=== PATIENT | female | born 1990 | race Caucasian/White ===

== ENCOUNTER 2022-03-04 00:16 | Emergency (ER) | payer OTHER, SELFPAY ==
[2022-03-04] VITALS (12 sets, daily range): BP systolic 116–150; BP diastolic 64–81; PULSE 66–86; RESP 16–20; TEMP 36.3; O2SAT 93–100; BMI 39.1
--- NOTE | 2022-03-04 02:14 | W.ED.ABDPA2 ---
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 She presents with multiple episodes of vomiting and diarrhea last night and this morning. She denies fever. She has a history of pancreatitis, when she was prior. She is currently 14 weeks . She has since had a cholecystectomy. She is also had a . No vaginal bleeding or discharge. Pain is in her epigastrium. MD elicited complaint: abdominal pain Pertinent past history: other Onset (ago): hour(s) Pain Consistency: constant Location: Epigastric Severity: moderate Quality: cramping and stabbing Radiation: back Migration to: no migration Exacerbating factors: movement Relieving factors: nothing Associated Symptoms: Reports bloating, change in bowel habits, diarrhea, nausea and vomiting; Denies dysuria and fever(s) Review of Systems Const: Reports: change in appetite; Denies: fever(s) or body aches Card: Denies: chest pain Resp: Denies: dyspnea, productive cough or non-productive cough GI: Reports: nausea, vomiting, diarrhea, bloating and change in bowel habits : Denies: dysuria, vaginal bleeding or vaginal discharge PFSH ED PFSH: Medical History Pancreatitis Physical Exam Const: GENERAL APPEARANCE: cooperative and ill appearing (mildly) HENMT: COMMON NORMALS: normocephalic HEAD & SCALP: normocephalic FACE & SINUS: normal facial exam and face symmetric Eye: COMMON NORMALS: Equal, round and reactive pupils present and EOMs intact bilaterally PUPIL: Yes Equal, round and reactive pupils present Chest: COMMONS NORMALS: normal inspection of the chest Resp: COMMON NORMALS: normal respiratory effort, No use of accessory muscles and clear to auscultation bilaterally AUSCULTATION: clear to auscultation bilaterally Cardio: COMMON NORMALS: regular rate and regular rhythm RATE: regular rate RHYTHM: regular rhythm GI: COMMON NORMALS: Soft to palpation INSPECTION: Yes abdominal distension (mildly) PALPATION: Yes Soft to palpation and Yes Tenderness to palpation present (GI) (epigastric) Neuro: ETHEL COMA SCALE: document GCS findings Range coma scale eye opening: Spontaneous Ethel coma scale verbal response: Orientated Ethel coma scale motor response: Obey commands Ethel coma scale total score: 15 Psych: COMMON NORMALS: mental status grossly normal and cooperative Skin: COMMON NORMALS: no rashes or lesions noted GENERAL SKIN EXAM: no rashes or lesions noted Course Vital Signs: Vital signs: Vital Signs Temperature 97.4 F L 03/04/22 00:25 Pulse Rate 86 03/04/22 05:52 Respiratory Rate 18 03/04/22 05:52 Blood Pressure 141/78 03/04/22 05:52 Pulse Oximetry 97 03/04/22 05:52 MDM - Abdominal Pain Medical Decision Making Patient feeling improved after antiemetics, pain medication, and 2 L of fluid here. Her potassium was 3.2, bicarbonate 16. CBC is normal. CRP is normal. Her serum quant is appropriate. Bedside ultrasound reveals intrauterine with positive movement, heart rate of 150, and a biparietal diameter of 14 weeks 5 days consistent with her dates. She is tender in the epigastrium. Her lipase is normal. Her liver enzymes are normal. She will be allowed discharge. She knows for what to return. Lab Data : 03/04/22 02:15 03/04/22 02:15 Labs/Radiology: Laboratory Results WBC 9.6 10^3/uL (4.0-10.0) 03/04/22 02:15 RBC 4.28 10^6/uL (4.1-5.3) 03/04/22 02:15 Hgb 13.4 g/dL (11.5-15.3) 03/04/22 02:15 Hct 39.7 % (37.0-47.0) 03/04/22 02:15 MCV 92.8 fl (81-99) 03/04/22 02:15 MCH 31.3 pg (28.0-34.0) 03/04/22 02:15 MCHC 33.8 g/dL (30.0-36.0) 03/04/22 02:15 RDW 12.7 % (12.1-15.1) 03/04/22 02:15 Plt Count 210 10^3/cmm (130-400) 03/04/22 02:15 MPV 10.9 fL (7.4-10.4) H 03/04/22 02:15 Neut % (Auto) 78.9 % 03/04/22 02:15 Lymph % (Auto) 15.0 % 03/04/22 02:15 [place] % (Auto) 5.2 % 03/04/22 02:15 Eos % (Auto) 0.5 % 03/04/22 02:15 Baso % (Auto) 0.2 % 03/04/22 02:15 Neut # (Auto) 7.60 10^3/uL (1.8-7.7) 03/04/22 02:15 Lymph # (Auto) 1.4 10^3/uL (0.8-4.8) 03/04/22 02:15 [place] # (Auto) 0.5 10^3/uL (0.2-0.9) 03/04/22 02:15 Eos # (Auto) 0.1 10^3/uL (0.0-0.8) 03/04/22 02:15 Baso # (Auto) 0.0 10^3/uL (0.0-0.1) 03/04/22 02:15 Nucleated RBC % (auto) 0 % 03/04/22 02:15 Nucleated RBCs # 0.0 /100WBC 03/04/22 02:15 Sodium 133 mmol/L (136-145) L 03/04/22 02:15 Potassium 3.2 mmol/L (3.5-5.1) L 03/04/22 02:15 Chloride 103 mmol/L (98-107) 03/04/22 02:15 Carbon Dioxide 16 mmol/L (22-29) L 03/04/22 02:15 Anion Gap 17.2 (5-19) 03/04/22 02:15 BUN 9 mg/dL (6-20) 03/04/22 02:15 Creatinine 0.5 mg/dL (0.5-0.9) 03/04/22 02:15 GFR Calculation 143.0 mL/min (90-130) H 03/04/22 02:15 Glucose 94 mg/dL (65-115) 03/04/22 02:15 Calculated Osmolality 274 mOsm/kg (285-295) L 03/04/22 02:15 Calcium 9.1 mg/dL (8.5-10.5) 03/04/22 02:15 Total Bilirubin 0.2 mg/dL (0.15-1.2) 03/04/22 02:15 AST 26 U/L (0-32) 03/04/22 02:15 ALT 38 U/L (0-33) H 03/04/22 02:15 Alkaline Phosphatase 49 IU/L (35-105) 03/04/22 02:15 C-Reactive Protein 4.6 mg/L (0.0-4.9) 03/04/22 02:15 Total Protein 6.9 g/dL (6.6-8.7) 03/04/22 02:15 Albumin 3.9 g/dL (3.5-5.2) 03/04/22 02:15 Globulin 3.0 g/dL (1.3-4.6) 03/04/22 02:15 Lipase 32 U/L (13-60) 03/04/22 02:15 Ser , Semi-Qnt 63961.00 mIU/mL 03/04/22 02:15 Urine Color Yellow (Yellow) 03/04/22 03:57 Urine Appearance Clear (CLEAR) 03/04/22 03:57 Urine pH 5 (5-7) 03/04/22 03:57 Ur Specific [place] 1.030 (1.005-1.030) 03/04/22 03:57 Urine Protein Neg (Negative) 03/04/22 03:57 Urine Glucose (UA) Norm (Normal) 03/04/22 03:57 Urine Ketones 1+ (Negative) H 03/04/22 03:57 Urine Blood Neg (Negative) 03/04/22 03:57 Urine Nitrate Negative (Negative) 03/04/22 03:57 Urine Bilirubin 1+ (Negative) H 03/04/22 03:57 Urine Urobilinogen Norm mg/dL (Negative) 03/04/22 03:57 Ur Leukocyte Esterase Negative (Negative) 03/04/22 03:57 Discharge Plan Discharge Patient Disposition: Home Clinical Impression: Acute epigastric pain, Gastroenteritis, Hypokalemia Condition: Stable Prescriptions: New ondansetron 4 mg film 4 mg PO DAILY PRN (Reason: nausea and vomiting) Qty: 10 0RF Pepcid 20 mg tablet 20 mg PO BID Qty: 30 0RF Discharge Orders: Discharge ED (Routine); Ordered 03/04/22 Ordered By: Mateo Bobo Patient Instructions: Gastroenteritis (ED), Abdominal Pain (ED) Activity Restrictions/Additional Instructions: Return for significant fever, vomiting liquids or medications despite treatment, worsening pain, blood in the stool, any other concerning symptoms. Return also for vaginal bleeding or discharge. Take nausea medication every 6 hours while awake for the first 24 hours, then as needed. Follow-up with your doctor. Coding Level of Care Code ED Aircraft Assembler for Chg Fwd Exam Comprehensive
[2022-03-04] MEDS: sodium chloride 0.9% 1,000 ML 999 ML IV ×2 (02:27→03:47)
[2022-03-04] MEDS: ondansetron 2 mg/ML SDV 2 mL 4 MG IVP (02:29)
[2022-03-04] MEDS: morphine 4 mg/mL SDV 1 mL IVP (02:32)
[2022-03-04 02:42] LABS: Basophils % 0.2 %; Eosinophils # 0.1 10^3/uL (0.0-0.8); Eosinophils % 0.5 %; Hematocrit 39.7 % (37.0-47.0); Hemoglobin 13.4 g/dL (11.5-15.3); Lymphocytes # 1.4 10^3/uL (0.8-4.8); Mean Corpuscular HGB Conc 33.8 g/dL (30.0-36.0); Mean Corpuscular Hemoglobin 31.3 pg (28.0-34.0); Mean Corpuscular Volume 92.8 fl (81-99); Mean Platelet Volume 10.9 fL (7.4-10.4); Monocytes # 0.5 10^3/uL (0.2-0.9); Monocytes % 5.2 %; Neutrophils % 78.9 %; Nucleated Red Blood Cells % 0 %; Platelet Count 210 10^3/cmm (130-400); Red Blood Count 4.28 10^6/uL (4.1-5.3); Red Cell Distribution Width 12.7 % (12.1-15.1); White Blood Count 9.6 10^3/uL (4.0-10.0)
[2022-03-04 03:21] LABS: Alanine Aminotransferase 38 U/L (0-33); Albumin Level 3.9 g/dL (3.5-5.2); Alkaline Phosphatase 49 IU/L (35-105); Anion Gap 17.2 (5-19); Aspartate Amino Transferase 26 U/L (0-32); Blood Urea Nitrogen 9 mg/dL (6-20); C Reactive Protein 4.6 mg/L (0.0-4.9); Calcium 9.1 mg/dL (8.5-10.5); Carbon Dioxide 16 mmol/L (22-29); Chloride 103 mmol/L (98-107); Glucose 94 mg/dL (65-115); Lipase 32 U/L (13-60); Osmolality Calculated 274 mOsm/kg (285-295); Potassium 3.2 mmol/L (3.5-5.1); Sodium 133 mmol/L (136-145); Total Bilirubin 0.2 mg/dL (0.15-1.2); Total Protein 6.9 g/dL (6.6-8.7)
[2022-03-04] MEDS: potassium chloride ER 20 mEq Tablet 40 MEQ PO (03:55)
[2022-03-04 04:09] LABS: Add Urine Microscopic? NO; Charge for UA Resulting for Rev
[2022-03-04 04:14] LABS: Bilirubin Urine 1+ (Negative); Blood Urine Neg (Negative); Glucose Urine UA Norm (Normal); Ketones Urine 1+ (Negative); Leukocyte Esterase Urine Negative (Negative); Nitrate Urine Negative (Negative); Protein Urine Neg (Negative); Urine Appearance Clear (CLEAR); Urine Color Yellow (Yellow); Urobilinogen Urine Norm (Negative); pH Urine 5 (5-7)
== END 2022-03-04 05:45 | disposition home or self-care (01) ==
PROVIDERS: Nurse Practitioner Family; Emergency Provider Emergency Medicine
DX: O26.892 Other specified pregnancy related conditions, second trimester (principal); K52.9 Noninfective gastroenteritis and colitis, unspecified; E87.6 Hypokalemia
CPT/HCPCS: 80053; 81003; 83690; 84702; 85025; 86140; 96361; 96374; 96375; 99284; J2270; J2405; J7030

== ENCOUNTER 2024-01-11 06:20 | Emergency (ER) | payer OTHER, SELFPAY ==
--- NOTE | 2024-01-11 06:26 | ECG_ITS ---
[facility] Test Date: 2024-01-11 Pat Name: Harper Elise Department: Room: Gender: Female Software Engineering Manager: : 1990 Requested By: Kaleb Keller Order Number: [id number] [place] MD: Christian Whitney M.D. Measurements Intervals [place] Rate: 69 P: 34 IN: 147 QRS: 42 QRSD: 85 T: 16 QT: 384 QTc: 412 Interpretive Statements SINUS RHYTHM WITH SINUS ARRHYTHMIA No previous ECG available for comparison Electronically Signed On 01-11-2024 8:22:13 CLINICAL NURSE REVIEWER by Christian Whitney M.D. [id number]
[2024-01-11 06:30] VITALS: BP 182/115; PULSE 63; RESP 16; TEMP 36.6; O2SAT 99; BMI 40.7
--- NOTE | 2024-01-11 06:39 | XRR_ITS ---
PROCEDURE INFORMATION: Exam: XR Chest Exam date and time: 01/11/2024 6:58 AM Age: 33 years old Clinical indication: Pain; Chest pressure; Additional info: Chest pain TECHNIQUE: Imaging protocol: Radiologic exam of the chest. Views: 1 view. COMPARISON: No relevant prior studies available. FINDINGS: Lungs: No consolidation. Pleural spaces: No sizable pleural effusion or pneumothorax. Heart/Mediastinum: No cardiomegaly. Bones/joints: Unremarkable. XR/XR chest 1V portable [id number] IMPRESSION: No acute intrathoracic findings.
[2024-01-11 06:52] LABS: Basophils % 0.3 %; Eosinophils % 0.3 %; Hematocrit 35.6 % (36-47); Lymphocytes # 1.4 10^3/uL (0.8-4.8); Lymphocytes % 21.2 %; Mean Corpuscular HGB Conc 33.4 g/dL (30-55); Mean Corpuscular Hemoglobin 30.4 pg (27-33); Mean Corpuscular Volume 90.8 fl (85-98); Mean Platelet Volume 11.2 fL (7.4-10.4); Monocytes # 0.3 10^3/uL (0.2-0.9); Monocytes % 4.5 %; Neutrophils # 4.85 10^3/uL (1.8-7.7); Neutrophils % 73.1 %; Nucleated Red Blood Cells % 0 %; Platelet Count 215 10^3/cmm (157-399); Red Blood Count 3.92 10^6/uL (3.85-5.65); Red Cell Distribution Width 13.2 % (12.1-15.1); White Blood Count 6.64 10^3/uL (3.29-11.43)
[2024-01-11] MEDS: sodium chloride 0.9% 1,000 ML 999 ML IV (07:09)
[2024-01-11 07:10] LABS: Alanine Aminotransferase 15 U/L (0-33); Albumin Level 3.7 g/dL (3.5-5.2); Alkaline Phosphatase 94 U/L (35-105); Anion Gap 16.9 (5-19); Aspartate Amino Transferase 17 U/L (0-32); Blood Urea Nitrogen 9 mg/dL (6-20); Calcium 9.1 mg/dL (8.5-10.5); Carbon Dioxide 25 mmol/L (22-29); Chloride 98 mmol/L (98-107); Globulin 3.4 g/dL (1.3-4.6); Glomerular Filtration Rate 82.6 mL/min (90-130); Glucose 112 mg/dL (65-115); Lipase 33 U/L (13-60); Osmolality Calculated 281 mOsm/kg (285-295); Potassium 3.9 mmol/L (3.5-5.1); Sodium 136 mmol/L (136-145); Total Bilirubin 0.2 mg/dL (0.15-1.2); Total Protein 7.1 g/dL (6.6-8.7)
[2024-01-11] MEDS: HYDROmorphone 1 mg/mL INJ 1 mL 0.5 MG IVP (07:10)
[2024-01-11] MEDS: ondansetron 2 mg/ML SDV 2 mL 4 MG IVP (07:10)
[2024-01-11 07:18] VITALS: BP 143/76; PULSE 55; RESP 18; O2SAT 95
[2024-01-11 08:37] LABS: Troponin(5th) Baseline < 6 ng/L (0-10)
[2024-01-11 08:50] LABS: NT Pro B Type Natriuretic Pept 99 pg/mL (0-125)
[2024-01-11] MEDS: lidocaine 2% viscous 15 ML, aluminum-mag hydrox-simethicon 30 ML, sucralfate oral liq 1 GM PO (08:52)
[2024-01-11 08:55] VITALS: BP 150/102; PULSE 59; RESP 18; O2SAT 96
[2024-01-11 08:57] VITALS: BP 133/83
[2024-01-11] MEDS: Fleet Enema 133 mL Enema PR (09:25)
[2024-01-11 09:30] LABS: Troponin 5 2HR Delta 0.00001 ABS# (0-10)
--- NOTE | 2024-01-11 09:30 | W.ED.CHESTPA ---
HPI - Chest Pain General: Chief Complaint: Chest Pain Stated Complaint: chest pain Time Seen by Provider: 01/11/24 06:25 History of Present Illness: This patient is a 33-year-old white female who presents to the emergency department complaining of epigastric and lower chest pain. She states she had a vaginal delivery home 2 days ago. She states the chest pain came on 6 hours after the baby was born. She is not having any associated shortness of breath. She has had nausea and vomiting. Patient is not currently on any medications. Patient states she was evaluated at [facility] days ago. I did obtain the reports from that ER visit. She had a very thorough workup done at that time including a CT angiogram of the chest to rule out PE which was negative. She also had an echocardiogram which was normal. The CT did however reveal some thickening of the esophagus. Later during the ER visit patient states that she has not had a bowel movement in 4 days and is unable to keep stool softeners down and was requesting an enema. Associated symptoms: Reports abdominal pain, nausea and vomiting Review of Systems General: Reports: 10 or more systems reviewed and unremarkable except in HPI and below Card: Reports: chest pain GI: Reports: abdominal pain, nausea, vomiting and constipation PFS ED PFSH: Medical History Pancreatitis Physical Exam Const: COMMON NORMALS: patient oriented x3 and no limitations GENERAL APPEARANCE: cooperative and comfortable HENMT: COMMON NORMALS: normocephalic, atraumatic, Normal nasal mucous membranes and turbinates present, moist oral mucous membranes and oropharynx normal HEAD & SCALP: normal to inspection, normocephalic and atraumatic FACE & SINUS: normal facial exam NOSE: Normal nasal mucous membranes and turbinates present Eye: COMMON NORMALS: Equal, round and reactive pupils present, EOMs intact bilaterally and conjunctivae normal GENERAL EYE: appearance normal, both eyes and all related structures CONJUNCTIVA: Yes conjunctivae normal PUPIL: Yes Equal, round and reactive pupils present Neck/C-Spine: COMMON NORMALS: supple and no JVD Chest: COMMONS NORMALS: normal inspection of the chest Resp: COMMON NORMALS: normal respiratory effort and clear to auscultation bilaterally AUSCULTATION: clear to auscultation bilaterally Cardio: COMMON NORMALS: no JVD, regular rate, regular rhythm, No gallops present (Cardio), No murmurs present (Cardio) and No rub (Cardio) RATE: regular rate RHYTHM: regular rhythm GI: COMMON NORMALS: Soft to palpation AUSCULTATION: Yes normoactive bowel sounds PALPATION: Yes Soft to palpation, Yes Tenderness to palpation present (GI) (Epigastric), No Guarding due to palpation present (GI) and No Rebound tenderness present : COMMON NORMALS: Yes no CVA tenderness BLADDER/KIDNEY EXAM: Yes no CVA tenderness Back/Pelvis: COMMON NORMALS: no CVA tenderness and thoracic and lumbar spine normal to inspection Extremity: COMMON NORMALS: normal to inspection Neuro: COMMON NORMALS: patient oriented x3 and CN's II-XII intact bilaterally Psych: COMMON NORMALS: mental status grossly normal, Normal thought process present and cooperative THOUGHT PROCESS: Normal thought process present Skin: COMMON NORMALS: no rashes or lesions noted, turgor normal and no jaundice GENERAL SKIN EXAM: no rashes or lesions noted and turgor normal Course Vital Signs: Vital signs: Vital Signs Temperature 97.9 F 01/11/24 06:30 Pulse Rate 59 L 01/11/24 08:55 Respiratory Rate 18 01/11/24 08:55 Blood Pressure 133/83 01/11/24 08:57 Pulse Oximetry 96 01/11/24 08:55 Oxygen Delivery Me thod Room Air 01/11/24 08:55 MDM - Chest Pain Medical Decision Making EKG revealed normal sinus rhythm with no ST segment abnormalities. Chest x-ray was normal. CBC and CMP normal. Lipase normal at 33. Troponin less than 6. BNP 99. Patient was given IV fluids, Zofran and Dilaudid. She later complained of a feeling of a band sensation around her chest. We then gave her a GI cocktail which did relieve that discomfort. I think her symptoms are secondary to reflux and constipation. She was given an enema. I will place her on omeprazole. Recommended she take Maalox in the meantime. Follow-up with primary care provider in 2 to 3 days for recheck. She was discharged in stable condition. Differential Diagnosis Likely acute massive pulmonary embolism and acute myocardial infarction Lab Data 01/11/24 06:45 01/11/24 06:45 Radiology Impressions Chest X-Ray 01/11/24 06:39 IMPRESSION: No acute intrathoracic findings. Laboratory Results WBC 6.64 10^3/uL (3.29-11.43) 01/11/24 06:45 RBC 3.92 10^6/uL (3.85-5.65) 01/11/24 06:45 Hgb 11.90 g/dL (11.27-16.99) 01/11/24 06:45 Hct 35.6 % (36-47) L 01/11/24 06:45 MCV 90.8 fl (85-98) 01/11/24 06:45 MCH 30.4 pg (27-33) 01/11/24 06:45 MCHC 33.4 g/dL (30-55) 01/11/24 06:45 RDW 13.2 % (12.1-15.1) 01/11/24 06:45 Plt Count 215 10^3/cmm (157-399) 01/11/24 06:45 MPV 11.2 fL (7.4-10.4) H 01/11/24 06:45 Neut % (Auto) 73.1 % 01/11/24 06:45 Lymph % (Auto) 21.2 % 01/11/24 06:45 [place] % (Auto) 4.5 % 01/11/24 06:45 Eos % (Auto) 0.3 % 01/11/24 06:45 Baso % (Auto) 0.3 % 01/11/24 06:45 Neut # (Auto) 4.85 10^3/uL (1.8-7.7) 01/11/24 06:45 Lymph # (Auto) 1.4 10^3/uL (0.8-4.8) 01/11/24 06:45 [place] # (Auto) 0.3 10^3/uL (0.2-0.9) 01/11/24 06:45 Eos # (Auto) 0.0 10^3/uL (0.0-0.8) 01/11/24 06:45 Baso # (Auto) 0.0 10^3/uL (0.0-0.1) 01/11/24 06:45 Nucleated RBC % (auto) 0 % 01/11/24 06:45 Nucleated RBCs # 0.0 /100WBC 01/11/24 06:45 Sodium 136 mmol/L (136-145) 01/11/24 06:45 Potassium 3.9 mmol/L (3.5-5.1) 01/11/24 06:45 Chloride 98 mmol/L (98-107) 01/11/24 06:45 Carbon Dioxide 25 mmol/L (22-29) 01/11/24 06:45 Anion Gap 16.9 (5-19) 01/11/24 06:45 BUN 9 mg/dL (6-20) 01/11/24 06:45 Creatinine 0.8 mg/dL (0.5-0.9) 01/11/24 06:45 GFR Calculation 82.6 mL/min (90-130) L 01/11/24 06:45 Glucose 112 mg/dL (65-115) 01/11/24 06:45 Calculated Osmolality 281 mOsm/kg (285-295) L 01/11/24 06:45 Calcium 9.1 mg/dL (8.5-10.5) 01/11/24 06:45 Total Bilirubin 0.2 mg/dL (0.15-1.2) 01/11/24 06:45 AST 17 U/L (0-32) 01/11/24 06:45 ALT 15 U/L (0-33) 01/11/24 06:45 Alkaline Phosphatase 94 U/L (35-105) 01/11/24 06:45 Troponin T Baseline < 6 ng/L (0-10) 01/11/24 06:45 Troponin T 120 Minute 6.00 ng/L (0-10) 01/11/24 08:48 Delta Troponin T 0.71844 ABS# (0-10) 01/11/24 08:48 NT-Pro-B Natriuret Pep 99 pg/mL (0-125) 01/11/24 06:45 Total Protein 7.1 g/dL (6.6-8.7) 01/11/24 06:45 Albumin 3.7 g/dL (3.5-5.2) 01/11/24 06:45 Globulin 3.4 g/dL (1.3-4.6) 01/11/24 06:45 Lipase 33 U/L (13-60) 01/11/24 06:45 All radiology interpretation(s) finalized by discharge Discharge Plan Discharge Patient Disposition: Home Clinical Impression: Chest pain due to GERD, Constipation Condition: Stable Prescriptions: New omeprazole 20 mg capsule,delayed release(DR/EC) 20 mg PO DAILY Qty: 30 0RF No Action ondansetron 4 mg film 4 mg PO DAILY PRN (Reason: nausea and vomiting) Qty: 10 0RF Pepcid 20 mg tablet 20 mg PO BID Qty: 30 0RF Discharge Orders: Discharge ED (Routine); Ordered 01/11/24 Ordered By: Kaleb Keller Activity Restrictions/Additional Instructions: Follow-up with your primary care physician in 2 to 3 days for recheck. Coding Level of Care Code ED Refueling Ramp Attendant for Lee Swan
== END 2024-01-11 09:58 | disposition home or self-care (01) ==
PROVIDERS: Emergency Provider Emergency Medicine
DX: K21.9 Gastro-esophageal reflux disease without esophagitis (principal); K59.00 Constipation, unspecified
CPT/HCPCS: 36415; 71045; 80053; 83690; 83880; 84484; 85025; 93005; 96361; 96374; 96375; 99285; J1170; J2405; J7030

== ENCOUNTER 2024-08-04 22:13 | Outpatient (CLI) | payer OTHER, SELFPAY ==
[2024-08-04 22:51] LABS: Amphetamines Screen Urine Negative (Negative); Barbiturates Screen Urine Negative (Negative); Benzodiazepines Screen Urine Negative (Negative); Cocaine Screen Urine Negative (Negative); Opiate Screen Urine Negative (Negative); PCP Screen Urine Negative (Negative); THC Screen Urine Negative (Negative)
== END 2024-08-04 22:14 | disposition home or self-care (01) ==
PROVIDERS: Visit Provider Family Medicine
DX: Z01.89 Encounter for other specified special examinations (principal)
CPT/HCPCS: 80306

== ENCOUNTER 2025-04-20 10:15 | Outpatient (CLI) | payer SELFPAY ==
[2025-04-20 10:43] VITALS: BP 133/80; PULSE 80
[2025-04-20 10:45] VITALS: RESP 18; TEMP 37.3
== END 2025-04-20 11:05 | disposition home or self-care (01) ==
LOC: OPOB 10:21 → OBGYN 10:21
PROVIDERS: Visit Provider Family Medicine
DX: O26.899 Other specified pregnancy related conditions, unspecified trimester (principal); Z3A.00 Weeks of gestation of pregnancy not specified; R11.2 Nausea with vomiting, unspecified; R19.7 Diarrhea, unspecified; K92.1 Melena
CPT/HCPCS: 99211

== ENCOUNTER 2025-04-20 11:12 | Observation (INO) | payer SELFPAY ==
[2025-04-20] VITALS (19 sets, daily range): BP systolic 120–151; BP diastolic 68–96; PULSE 71–87; RESP 16–22; TEMP 36.4–37.3; O2SAT 94–100; BMI 42.4
--- NOTE | 2025-04-20 11:29 | ED_ITS ---
HPI - Abdominal Pain 2 General: Chief Complaint: Abdominal Pain Stated Complaint: N/V/D Time Seen by Provider: 04/20/25 11:23 History of Present Illness: 35-year-old female presents to the emerg ency room with complaint of bloody diarrhea. She reports abdominal pain 10 out of 10 on arrival she is 20 weeks at this point. Initially she was seated OB confirmed good heart tones by ultrasound. Patient has also had some bilious vomiting no hematemesis or coffee-ground emesis. She previously had a cholecystectomy and a . Associated Symptoms: Denies chills, dysuria and fever(s) Related Data Home Medications ?Medication ?Instructions ?Recorded ?Confirmed vits no.118-iron asparto 1 cap PO DAILY 04/2004/20/25 30 mg-folate 1 mg-dha 300 mg capsule Allergies Allergy/AdvReac Type Severity Reaction Status Date / Time No Known Allergies Allergy Verified 03/04/22 00:37 Review of Systems 2 Const: Denies: fever(s) or chills Card: Denies: chest pain Resp: Denies: dyspnea GI: Denies: abdominal pain : Denies: dysuria, urinary frequency or urinary urgency Musc: Denies: neck pain or back pain Skin/Breast: Denies: rash PFSH ED 2 PFSH: Medical History Pancreatitis Physical Exam 2 Const: COMMON NORMALS: no acute distress GENERAL APPEARANCE: cooperative and comfortable ORIENTATION/CONSCIOUSNESS: Yes awake, Yes oriented to person, Yes oriented to place and Yes oriented to time HENMT: COMMON NORMALS: normocephalic, atraumatic and hearing grossly normal bilaterally HEAD & SCALP: normocephalic and atraumatic Resp: COMMON NORMALS: normal respiratory effort, No retractions, No use of accessory muscles and clear to auscultation bilaterally AUSCULTATION: clear to auscultation bilaterally Cardio: COMMON NORMALS: regular rate, regular rhythm and No murmurs present (Cardio) RATE: regular rate RHYTHM: regular rhythm GI: COMMON NORMALS: Soft to palpation and No hepatosplenomegaly present A USCULTATION: Yes normoactive bowel sounds PALPATION: Yes Soft to palpation, No Tenderness to palpation present (GI), No Guarding due to palpation present (GI) and Yes No hepatosplenomegaly present Extremity: COMMON NORMALS: normal to inspection, capillary refill normal, no clubbing, cyanosis or edema, no calf tenderness and no pedal edema Neuro: SENSORIUM/ORIENTATION: Yes oriented to person, Yes oriented to place and Yes oriented to time Skin: COMMON NORMALS: no rashes or lesions noted GENERAL SKIN EXAM: no rashes or lesions noted Course 2 Vital Signs: Vital signs: Vital Signs Temperature 97.6 F 04/21/25 07:40 Pulse Rate 74 04/21/25 07:40 Respiratory Rate 15 04/21/25 07:40 Blood Pressure 121/78 04/21/25 07:40 Pulse Oximetry 98 04/21/25 07:40 Oxygen Delivery Me thod Room Air 04/21/25 07:40 Fraction of Inspir ed Oxygen 21 04/21/25 00:11 MDM - Abdominal Pain Medical Decision Making Patient still is complaining of abdominal discomfort most of his right upper quadrant epigastric discomfort she did have 1 mucousy bloody bowel movement in the room. Laboratory test reviewed no significant abnormalities ultrasound of the abdomen was unremarkable. Because she is at 20 weeks gestation we held off on a CT suspect Shelba colitis rectal exam there was some noninflamed hemorrhoidal tags. C. difficile was negative. Will admit IV fluids continue Protonix discussed with hospitalist discussed Dr. Mondragon who accepted the patient from the unassigned patient's list in the OB department which she was evaluated there. That evaluation was unremarkable and she was sent to the ER because it seemed to be more of a medical issue with which I agree. Also discussed with hospitalist will consult surgery. Labs continue IV fluids n.p.o. monitor hemoglobin. Medical Records I reviewed the patient's medical records. Lab Data I reviewed the patient's lab results. 04/21/25 05:17 04/21/25 05:17 Labs/Radiology: Radiology Impressions Abdomen Ultrasound 04/20/25 13:12 IMPRESSION: 1. Prior cholecystectomy. 2. No other acute findings Laboratory Results WBC 10.03 10^3/uL (3.29-11.43) 04/20/25 12:00 RBC 4.64 10^6/uL (3.85-5.65) 04/20/25 12:00 Hgb 13.80 g/dL (11.27-16.99) 04/20/25 12:00 Hct 44.6 % (36-47) 04/20/25 12:00 MCV 96.1 fl (85-98) 04/20/25 12:00 MCH 29.7 pg (27-33) 04/20/25 12:00 MCHC 30.9 g/dL (30-55) 04/20/25 12:00 RDW 14.0 % (12.1-15.1) 04/20/25 12:00 Plt Count 204 10^3/cmm (157-399) 04/20/25 12:00 MPV 10.7 fL (7.4-10.4) H 04/20/25 12:00 Neut % (Auto) 87.0 % 04/20/25 12:00 Lymph % (Auto) 8.4 % 04/20/25 12:00 [place] % (Auto) 3.8 % 04/20/25 12:00 Eos % (Auto) 0.1 % 04/20/25 12:00 Baso % (Auto) 0.3 % 04/20/25 12:00 Neut # (Auto) 8.73 10^3/uL (1.8-7.7) H 04/20/25 12:00 Lymph # (Auto) 0.8 10^3/uL (0.8-4.8) 04/20/25 12:00 [place] # (Auto) 0.4 10^3/uL (0.2-0.9) 04/20/25 12:00 Eos # (Auto) 0.0 10^3/uL (0.0-0.8) 04/20/25 12:00 Baso # (Auto) 0.0 10^3/uL (0.0-0.1) 04/20/25 12:00 Nucleated RBC % (auto) 0 % 04/20/25 12:00 Nucleated RBCs # 0.0 /100WBC 04/20/25 12:00 Sodium 138 mmol/L (136-145) 04/20/25 12:00 Potassium 3.9 mmol/L (3.5-5.1) 04/20/25 12:00 Chloride 104 mmol/L (98-107) 04/20/25 12:00 Carbon Dioxide 16 mmol/L (22-29) L 04/20/25 12:00 Anion Gap 21.9 (5-19) H 04/20/25 12:00 BUN 7 mg/dL (6-20) 04/20/25 12:00 Creatinine 0.5 mg/dL (0.5-0.9) 04/20/25 12:00 GFR Calculation 140.4 mL/min (90-130) H 04/20/25 12:00 Glucose 133 mg/dL (65-115) H 04/20/25 12:00 Calculated Osmolality 286 mOsm/kg (285-295) 04/20/25 12:00 Calcium 9.2 mg/dL (8.5-10.5) 04/20/25 12:00 Iron 24 ug/dL (37-145) L 04/20/25 12:00 TIBC 437 mcg/dl 04/20/25 12:00 % Saturation 5.4 % (20-50) L 04/20/25 12:00 Unsat Iron Binding 413 ug/dL (112-347) H 04/20/25 12:00 Total Bilirubin 0.2 mg/dL (0.15-1.2) 04/20/25 12:00 AST 16 U/L (0-32) 04/20/25 12:00 ALT 17 U/L (0-33) 04/20/25 12:00 Alkaline Phosphatase 73 U/L (35-105) 04/20/25 12:00 Total Protein 7.8 g/dL (6.6-8.7) 04/20/25 12:00 Albumin 3.9 g/dL (3.5-5.2) 04/20/25 12:00 Globulin 3.9 g/dL (1.3-4.6) 04/20/25 12:00 Lipase 41 U/L (13-60) 04/20/25 12:00 HCG, Qual Positive (Negative) H 04/20/25 12:00 Urine Color Dark yellow (Yellow) A 04/20/25 14:35 Urine Appearance Turbid (CLEAR) A 04/20/25 14:35 Urine pH 5.5 (5-7) 04/20/25 14:35 Ur Specific [place] 1.031 (1.005-1.030) H 04/20/25 14:35 Urine Protein 1+ (Negative) A 04/20/25 14:35 Urine Glucose (UA) Negative (Normal) 04/20/25 14:35 Urine Ketones 4+ (Negative) 04/20/25 14:35 Urine Blood Negative (Negative) 04/20/25 14:35 Urine Nitrate Negative (Negative) 04/20/25 14:35 Urine Bilirubin Negative (Negative) 04/20/25 14:35 Urine Urobilinogen 1.0 mg/dL (Negative) 04/20/25 14:35 Ur Leukocyte Esterase Trace (Negative) A 04/20/25 14:35 Urine RBC 0-2 /hpf (0-2) 04/20/25 14:35 Urine WBC 6-10 /hpf (0-5) 04/20/25 14:35 Ur Squamous Epith Cells 21-50 /hpf (0-5) H 04/20/25 14:35 Amorphous Sediment 4+ /hpf 04/20/25 14:35 Urine Bacteria 1+ /hpf (NONE) H 04/20/25 14:35 Hyaline Casts 5.77 /lpf 04/20/25 14:35 C. difficile (PCR) Negative (Negative) 04/20/25 11:00 All radiology interpretation(s) finalized by discharge Discharge Plan Discharge Patient Disposition: Admitted As Inpatient Admit Provider: Beverly Paiz Clinical Impression: Epigastric abdominal pain, with 20 completed weeks gestation, BRBPR (bright red blood per rectum) Condition: Stable Coding Level of Care Code ED Molding Plasterer for Lee Swan
[2025-04-20] MEDS: morphine 4 mg/mL SDV 1 mL IVP ×4 (11:55→20:12)
[2025-04-20] MEDS: ondansetron 2 mg/ML SDV 2 mL 4 MG IVP ×2 (11:55→18:32)
[2025-04-20] MEDS: pantoprazole 40 mg SDV 80 MG IVP (12:05)
[2025-04-20] MEDS: sodium chloride 0.9% 1,000 ML 999 ML IV ×2 (12:11→13:31)
[2025-04-20 12:18] LABS: Basophils % 0.3 %; Eosinophils % 0.1 %; Hematocrit 44.6 % (36-47); Lymphocytes # 0.8 10^3/uL (0.8-4.8); Lymphocytes % 8.4 %; Mean Corpuscular HGB Conc 30.9 g/dL (30-55); Mean Corpuscular Hemoglobin 29.7 pg (27-33); Mean Corpuscular Volume 96.1 fl (85-98); Mean Platelet Volume 10.7 fL (7.4-10.4); Monocytes # 0.4 10^3/uL (0.2-0.9); Monocytes % 3.8 %; Neutrophils # 8.73 10^3/uL (1.8-7.7); Nucleated Red Blood Cells % 0 %; Platelet Count 204 10^3/cmm (157-399); Red Blood Count 4.64 10^6/uL (3.85-5.65); White Blood Count 10.03 10^3/uL (3.29-11.43)
[2025-04-20 12:32] LABS: Alanine Aminotransferase 17 U/L (0-33); Albumin Level 3.9 g/dL (3.5-5.2); Alkaline Phosphatase 73 U/L (35-105); Anion Gap 21.9 (5-19); Aspartate Amino Transferase 16 U/L (0-32); Blood Urea Nitrogen 7 mg/dL (6-20); Calcium 9.2 mg/dL (8.5-10.5); Carbon Dioxide 16 mmol/L (22-29); Chloride 104 mmol/L (98-107); Creatinine Clr Calc Pharmacy 213.5296; Globulin 3.9 g/dL (1.3-4.6); Glomerular Filtration Rate 140.4 mL/min (90-130); Glucose 133 mg/dL (65-115); Lipase 41 U/L (13-60); Osmolality Calculated 286 mOsm/kg (285-295); Potassium 3.9 mmol/L (3.5-5.1); Sodium 138 mmol/L (136-145); Total Bilirubin 0.2 mg/dL (0.15-1.2); Total Protein 7.8 g/dL (6.6-8.7)
--- NOTE | 2025-04-20 13:12 | US_ITS ---
WS: [id number] ULTRASOUND ABDOMEN CLINICAL INFORMATION: abd pain, 20 wks gest COMPARISON: None. FINDINGS: Liver Size: Mild hepatomegaly Craniocaudal length: 17.8 cm. Echogenicity: Normal. Surface nodularity: None. Mass (size and location): None. Bile ducts Intrahepatic ducts: Normal. Common bile duct diameter: 0.8 cm. Gallbladder Cholecystectomy Pancreas Normal as visualized. Spleen Splenomegaly: None. Right kidney: Normal. Hydronephrosis: None. Size: 11.4 cm x 6.0 cm x 5.4 cm Left kidney: Normal. Hydronephrosis: None. Size: 11.4 cm x 6.6 cm x 6.1 cm. Abdominal aorta and IVC Visualized portions are normal. Ascites: None. US/US abdomen complete* [id number] IMPRESSION: 1. Prior cholecystectomy. 2. No other acute findings
[2025-04-20 14:47] LABS: Bilirubin Urine Negative (Negative); Blood Urine Negative (Negative); Glucose Urine UA Negative (Normal); Ketones Urine 4+ (Negative); Leukocyte Esterase Urine Trace (Negative); Nitrate Urine Negative (Negative); Protein Urine 1+ (Negative); Urine Appearance Turbid (CLEAR); Urine Color Dark Yellow (Yellow); pH Urine 5.5 (5-7)
[2025-04-20 14:52] LABS: Add Urine Microscopic? YES; Hyaline Casts Urine 5.77 /lpf; RBC Urine 0-2 /hpf (0-2); Squamous Epithelial Cell Urine 21-50 /hpf (0-5)
[2025-04-20 15:10] LABS: Specific Gravity, Urine 1.031 (1.005-1.030); UA Slide Review UA Slide Review Perf
[2025-04-20 15:12] LABS: Bacteria Urine 1+ /hpf
[2025-04-20 15:13] LABS: Add Urine Culture? No; Amorphous Sediment Urine 4+ /hpf
[2025-04-20 15:31] LABS: C.Diff PCR (Lab) NEGATIVE (Negative)
--- NOTE | 2025-04-20 16:30 | PM.HP ---
Providers/Chief Complaint Chief Complaint: N/V/D History of Present Illness Harper Elise is a 35 year old female G4, P3 at 20 weeks gestation who presented to the ER for nausea, vomiting, abdominal pain and bloody diarrhea. The patient states that her symptoms began about 4 to 5 days ago with nausea vomiting and gas. She really did not take much at home but it progressed over the next couple of days to extreme pain after eating. Then this morning she began having bloody stools. Her first stool was bright red blood with clots. After that it seemed to be more foamy mucus. The pain she experiences is in the epigastric area and is very constant, mostly pressure but becomes more extreme and severe with eating. The patient states that she does have a history of pancreatitis during her first and she was required to be on TPN for the last 2 months of her first . She has since had a cholecystectomy. she states that this feels similar to when she had pancreatitis. She denies being on any medications. She took a little bit of Mylanta this morning but it did not seem to make any difference. The patient is seeing a communications supervisor for care and has not yet had an anatomy ultrasound. She denies any complications with this . The patient has not had any vaginal bleeding or loss of fluid. She was already seen and evaluated over an OB and had good heart tones in the 140s. The patient has a history of 1 section for her first followed by 2 VBACs, the last was a home delivery. She is following with a communications supervisor for this . She knows it is a boy. Review of Systems Narrative: Positive nausea, positive vomiting, positive bloody diarrhea, positive gas, positive epigastric pain, Patient denies any vaginal bleeding or loss of fluid. She denies any contractions. Medications/Allergies Home Medications ?Medication ?Instructions ?Recorded ?Confirmed ?Last Taken ?Type vits no.118-iron asparto 1 cap PO DAILY 04/20/25 04/20/25 04/13/25 History 30 mg-folate 1 mg-dha 300 mg capsule Allergies Allergy/AdvReac Type Severity Reaction Status Date / Time No Known Allergies Allergy Verified 03/04/22 00:37 PFSH Acute PFSH: Medical History Pancreatitis Vitals/I&O/Wt Last Vital Signs Temp 99.1 F 04/20/25 11:16 Pulse 74 04/20/25 15:37 Resp 20 H 04/20/25 15:37 BP 138/68 04/20/25 15:37 Pulse Ox 100 04/20/25 15:37 O2 Del Method Room Air 04/20/25 11:16 04/20/25 04/20/25 04/20/25 06:59 14:59 22:59 Intake Total 1000 / 1000 Balance 1000 / 1000 Weight last 48 hrs Weight 122.924 kg Physical Exam Narrative: The patient appears to be in mild to moderate distress restlessly laying in bed with a vomit bag in her hand. She does briefly sit up and make brief eye contact but otherwise keeps her eyes closed. GI: OTHER: Patient's abdomen is obese, fundus is difficult to appreciate except with deep palpation, her abdomen is tender in the epigastric area, no rebound, no guarding. Extremity: NARRATIVE EXTREMITY EXAM: No calf tenderness, no edema Data 04/20/25 12:00 04/20/25 12:00 A&P Assessment and plan (1) Epigastric abdominal pain: Consult hospitalist for medical management. This appears to be GI related and not at all related to the . Patient may have opioid pain medications if necessary. We may try to limit NSAIDs but she is still early enough in the where they are permissible. (2) Nausea and vomiting in adult: Continue IV fluids and antiemetics. (3) BRBPR (bright red blood per rectum): (4) with 20 completed weeks gestation: Heart tones done prior to admission. PDMP PDMP Reviewed: Not Reviewed Attestations Medical Necessity Statement*: Intractable nausea and vomiting with intractable abdominal pain. Need for IV fluids and further investigation. Coding Level of Care Code Acute Code for Chg Fwd Diagnoses Epigastric abdominal pain R10.13 Nausea and vomiting in adult R11.2 BRBPR (bright red blood per rectum) K62.5 with 20 completed weeks gestation Z3A.20
[2025-04-20 16:31] LABS: HCG, Serum Qual Positive (Negative)
[2025-04-20 17:21] LABS: Iron 24 ug/dL (37-145); Percent Saturation 5.4 % (20-50); Total Iron Binding Capacity 437 mcg/dl; Unsaturated Iron Binding 413 ug/dL (112-347)
--- NOTE | 2025-04-20 17:22 | P.CONIM_ITS ---
Providers/Reason For Consult 2 Consulting Physician/Specialty*: Dr. Olea general surgery Reason for Consult*: GI bleed Attending Physician: Beverly Paiz MD History of Present Illness History of Present Illness Harper Elise is a 35 year old female whom surgery was consulted for GI bleed. Patient is 20 weeks . Had a sandwich at [employer] with deli meat on Friday. Ever since she is experienced nausea, vomiting, fevers. She is now having bloody diarrhea. Clinical picture suspicious for Listeria infection. Perineal exam unremarkable. I inspected her bloody diarrhea and she does not have an active GI bleed. Medications/Allergies Home Medications ?Medication ?Instructions ?Recorded ?Confirmed ?Last Taken ?Type vits no.118-iron asparto 1 cap PO DAILY 04/2004/20/25 04/13/25 History 30 mg-folate 1 mg-dha 300 mg capsule Allergies Allergy/AdvReac Type Severity Reaction Status Date / Time No Known Allergies Allergy Verified 03/04/22 00:37 PFSH Acute 2 PFSH: Medical History Pancreatitis Vitals/I&O/Wt Last Vital Signs Temp 99.1 F 04/20/25 11:16 Pulse 74 04/20/25 15:37 Resp 18 04/20/25 17:05 BP 138/68 04/20/25 15:37 Pulse Ox 100 04/20/25 15:37 O2 Del Method Room Air 04/20/25 11:16 04/20/25 04/20/25 04/20/25 06:59 14:59 22:59 Intake Total 1000 / 1000 Balance 1000 / 1000 Weight last 48 hrs Weight 271 lb Physical Exam 2 Narrative: Chest: Unlabored breathing room air. No lymphadenopathy. Heart: Regular rate and rhythm. Abdomen: Soft, nontender, nondistended. No masses or lymphadenopathy. Perineal exam: Unremarkable. No visible hemorrhoids. 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 Patient does not have a GI bleed. This is outside of my scope of practice. Spoke to hospitalist and physician covering obstetrics regarding my concerns. Consider transfer to higher level of care. PDMP PDMP Reviewed: Not Reviewed Coding Level of Care Code Acute Code for Chg Fwd Diagnoses BRBPR (bright red blood per rectum) K62.5 Infectious diarrhea A09
--- NOTE | 2025-04-20 18:31 | PM.CONSULT ---
Providers/Reason For Consult Consulting Physician/Specialty*: Internal medicine/hospitalist Reason for Consult*: Bright blood per rectum Requesting Physician: ER physician Attending Physician: Beverly Paiz MD History of Present Illness History of Present Illness Harper Elise is a 35 year old 20-week female presents to the ER with nausea, vomiting epigastric abdominal pain and bloody diarrhea. Patient states she has been nauseous for last 4 to 5 days but has not been able to keep anything down for last 2 days along with epigastric pain and bloody diarrhea more so since today morning. She denies of having any dizziness. Does give history of eating out at [employer] on Friday along with p.o. solid. Does consume well water, unpasteurized milk on and off. Denies any consumption of raw meat. Does have history of pancreatitis requiring cholecystectomy and TPN in her first . Review of Systems General: Reports: 10 or more systems reviewed and unremarkable except in HPI and below Const: Denies: fever(s), chills, body aches, change in appetite, change in weight, malaise, night sweats, diaphoresis, change in sleep pattern, daytime sleepiness or snoring Eyes: Denies: change in vision, blurry vision, photophobia, eye discomfort or eye discharge ENMT: Denies: throat pain, enlarged tonsils, hoarseness, mouth pain, oral sores, dry mouth, tinnitus, nasal congestion or post nasal drip Card: Denies: chest pain, palpitations, irregular heart rhythm, edema, swelling of feet/ankles, lightheadedness, syncope, pre-syncope, dyspnea on exertion, orthopnea, leg pain with exertion or acrocyanosis Resp: Denies: dyspnea, productive cough, non-productive cough, wheezing, stridor, pain on inspiration, change in phlegm color, hemoptysis or chest congestion GI: Denies: abdominal pain, nausea, vomiting, hematemesis, coffee ground emesis, dysphagia, heartburn, diarrhea, constipation, bloating, GI cramping, change in bowel habits, pain on defecation, hematochezia or melena : Denies: flank pain, dysuria, urinary frequency, urinary urgency, urinary hesitancy, nocturia or hematuria Musc: Denies: neck pain, back pain, extremity pain, joint pain, joint swelling, joint redness, joint stiffness or limited range of motion Neuro: Denies: headache(s), numbness in extremities, weakness in extremities, sensory changes, lack of coordination, difficulty walking, frequent falls, dizziness, vertigo, confusion, Slurred speech present, difficulty communicating thoughts or seizure-like activity Psych: Denies: anxiety, depression, mood swings, panic attacks, hopelessness or irritability Endo: Denies: polyuria, polydipsia, tired all the time, cold intolerance, excessive sweating, flushing or heat intolerance Christofer/Lymph: Denies: easy bruising or easy bleeding All/Imm: Denies: tongue swelling, facial swelling or acute wheezing Medications/Allergies Home Medications ?Medication ?Instructions ?Recorded ?Confirmed ?Last Taken ?Type vits no.118-iron asparto 1 cap PO DAILY 04/20/25 04/20/25 04/13/25 History 30 mg-folate 1 mg-dha 300 mg capsule Allergies Allergy/AdvReac Type Severity Reaction Status Date / Time No Known Allergies Allergy Verified 03/04/22 00:37 PFSH Acute PFSH: Medical History Pancreatitis Vitals/I&O/Wt Last Vital Signs Temp 99.1 F 04/20/25 11:16 Pulse 74 04/20/25 15:37 Resp 18 04/20/25 17:05 BP 138/68 04/20/25 15:37 Pulse Ox 100 04/20/25 15:37 O2 Del Method Room Air 04/20/25 11:16 04/20/25 04/20/25 04/20/25 06:59 14:59 22:59 Intake Total 1000 / 1000 Balance 1000 / 1000 Weight last 48 hrs Weight 122.924 kg Physical Exam Narrative: General: In distress because of abdominal pain and nausea, dehydrated, AO x3 HEENT: PERRLA, pupils bilaterally equal and reactive Chest: Normal vesicular breath sounds, no added sounds, equal good air entry bilaterally CVS: S1-S2 regular, no murmurs, no tachycardia, no gallops, no rubs Abdomen: Soft, obese, mild tenderness in the epigastric, no organomegaly, bowel sounds present Neuro: No focal deficits, no facial deformity, AO x3, power 5/5 in all limbs Data 04/20/25 12:00 04/20/25 12:00 Micro: Microbiology 04/20/25 18:15 Blood Culture - Preliminary Blood SPECIMEN COLLECTED 04/20/25 18:21 Blood Culture - Preliminary Blood SPECIMEN COLLECTED A&P Assessment and plan (1) Nausea and vomiting in adult: (2) BRBPR (bright red blood per rectum): (3) Epigastric abdominal pain: (4) with 20 completed weeks gestation: Plan 35-year-old lady with past medical history of pancreatitis during who is 20-week presents with complaint of nausea, vomiting, cramping epigastric pain for last 4 days with not able to keep anything down for last 2 days and bright blood per rectum since today morning. Check hCG. Cannot rule out pancreatitis. Lipase within normal limits. Ultrasound abdomen appreciated without acute abnormalities. LFTs found to be in normal range. Normal alkaline phosphatase. Postcholecystectomy. Could be hyperemesis gravidarum but would not explain bright blood per rectum. Surgical consultation. Cannot rule out hemorrhoids. Given use of solid recently along with well water cannot rule out gastroenteritis. Check respiratory viral panel, stool studies. C. difficile negative. Blood culture, urine culture, GI panel with concerns for possible Listeria. Empirically start on IV meropenem every 8 hourly. Confirm with TECHNICAL TRAINING INSTRUCTOR and safety in . Hemoglobin so far stable. 13.8 today. Cannot rule out mild hemoconcentration. Check CBC daily. Check respiratory viral panel. IV fluids with NS at 100 cc/h. Patient does have metabolic acidosis most likely in setting of dehydration and vomiting. Zofran every 6 hour. Can use Phenergan if needed as per TECHNICAL TRAINING INSTRUCTOR. Protonix 40 mg IV daily. Other treatment as per primary team. N.p.o. for now. PDMP PDMP Reviewed: Not Reviewed Consult Attestations Medical Necessity Statement: As per primary team for nausea, vomiting and bloody diarrhea with concerns for dice entry/Listeria Diagnoses Nausea and vomiting in adult R11.2 BRBPR (bright red blood per rectum) K62.5 Epigastric abdominal pain R10.13 with 20 completed weeks gestation Z3A.20
[2025-04-20] MEDS: meropenem 1,000 mg SDV 1000 MG IVP (18:32)
--- NOTE | 2025-04-20 19:13 | PC.NURSE ---
Called Dr. Paiz and she stated that it is alright for the patient to be here as they don't monitor 20 week patient's all the time in [facility] either. maintenance supervisor 2nd shift notified. No heating pads to patent's belly but ice is okay.
[2025-04-20 19:40] LABS: Lactic Sepsis W/Reflex 0.8 mmol/L (0.5-2.2)
[2025-04-20 19:41] LABS: Procalcitonin 0.08 ng/mL (0-0.5)
[2025-04-20] MEDS: lidocaine 2% viscous 15 ML, aluminum-mag hydrox-simethicon 30 ML, sucralfate oral liq 1 GM PO (22:00)
[2025-04-20] MEDS: sodium chloride 0.9% 1,000 ML 150 ML IV (22:01)
[2025-04-20 23:11] LABS: Adenovirus Not Detected (NOT DETECT); Chlamydia Pneumoniae Not Detected (NOT DETECT); Coronavirus 229E,HKU1,NL63,OC4 Not Detected (NOT DETECT); Human Metapneumovirus Not Detected (NOT DETECT); Human Rhinovirus/Enterovirus Not Detected (NOT DETECT); Influenza A Not Detected (NOT DETECT); Influenza A H1 Not Detected (NOT DETECT); Influenza A H1-2009 Not Detected (NOT DETECT); Influenza A H3 Not Detected (NOT DETECT); Influenza B Not Detected (NOT DETECT); Mycoplasma Pneumoniae Not Detected (NOT DETECT); Parainfluenza Virus Type 1 Not Detected (NOT DETECT); Parainfluenza Virus Type 2 Not Detected (NOT DETECT); Parainfluenza Virus Type 3 Not Detected (NOT DETECT); Parainfluenza Virus Type 4 Not Detected (NOT DETECT); Respiratory Syncytial Virus A Not Detected (NOT DETECT); Respiratory Syncytial Virus B Not Detected (NOT DETECT); SARS-COV-2 Not Detected (NOT DETECT)
[2025-04-20] MEDS: morphine 4 mg/mL SDV 1 mL 2 MG IVP (23:53)
[2025-04-21] VITALS (8 sets, daily range): BP systolic 106–154; BP diastolic 67–82; PULSE 69–83; RESP 15–19; TEMP 36.4–36.7; O2SAT 94–99
[2025-04-21] MEDS: morphine 4 mg/mL SDV 1 mL IVP (01:20)
[2025-04-21] MEDS: meropenem 1,000 mg SDV 1000 MG IVP ×2 (01:20→15:38)
[2025-04-21] MEDS: ondansetron 2 mg/ML SDV 2 mL 4 MG IVP (01:21)
[2025-04-21] MEDS: sodium chloride 0.9% 1,000 ML 150 ML IV (03:45)
[2025-04-21 05:39] LABS: Basophils % 0.1 %; Eosinophils % 0.1 %; Hematocrit 34.3 % (36-47); Lymphocytes # 1.2 10^3/uL (0.8-4.8); Mean Corpuscular HGB Conc 32.1 g/dL (30-55); Mean Corpuscular Hemoglobin 30.1 pg (27-33); Mean Corpuscular Volume 93.7 fl (85-98); Mean Platelet Volume 10.3 fL (7.4-10.4); Monocytes # 0.6 10^3/uL (0.2-0.9); Monocytes % 7.5 %; Nucleated Red Blood Cells % 0 %; Platelet Count 208 10^3/cmm (157-399); Red Blood Count 3.66 10^6/uL (3.85-5.65)
[2025-04-21 06:03] LABS: Alanine Aminotransferase 12 U/L (0-33); Albumin Level 3.2 g/dL (3.5-5.2); Alkaline Phosphatase 56 U/L (35-105); Anion Gap 15.2 (5-19); Aspartate Amino Transferase 8 U/L (0-32); Blood Urea Nitrogen 4 mg/dL (6-20); Calcium 7.7 mg/dL (8.5-10.5); Carbon Dioxide 18 mmol/L (22-29); Chloride 106 mmol/L (98-107); Creatinine Clr Calc Pharmacy 213.5296; Globulin 2.6 g/dL (1.3-4.6); Glomerular Filtration Rate 140.4 mL/min (90-130); Glucose 104 mg/dL (65-115); Magnesium 1.9 mg/dL (1.7-2.3); Osmolality Calculated 279 mOsm/kg (285-295); Phosphorus 2.4 mg/dL (2.5-4.5); Potassium 3.2 mmol/L (3.5-5.1); Sodium 136 mmol/L (136-145); Total Bilirubin 0.2 mg/dL (0.15-1.2); Total Protein 5.8 g/dL (6.6-8.7)
[2025-04-21 06:05] LABS: Procalcitonin 0.07 ng/mL (0-0.5)
[2025-04-21 06:08] LABS: Estmated Average Glucose 120; Hemoglobin A1C 5.8 % (4.0-6.0)
--- NOTE | 2025-04-21 10:42 | P.PN_ITS ---
Subjective 2 Subjective: States she is feeling a lot better. Has remained hemodynamically stable and afebrile. Less nausea. Less abdominal pain. No further bloody bowel movements or continues to have diarrhea. Stool samples are not yet collected. Vitals/I&O/Wt Last Vital Signs Temp 97.6 F 04/21/25 07:40 Pulse 74 04/21/25 07:40 Resp 15 04/21/25 07:40 BP 121/78 04/21/25 07:40 Pulse Ox 98 04/21/25 07:40 O2 Del Method Room Air 04/21/25 07:40 FiO2 21 04/21/25 00:11 04/20/25 04/21/25 04/21/25 22:59 06:59 14:59 Intake Total 1250 / 2250 950 / 3200 Output Total 240 / 240 Balance 1250 / 2250 710 / 2960 Weight last 48 hrs Weight 122.924 kg Weight 122.924 kg Weight 122.924 kg Physical Exam 2 Narrative: General: In no acute distress, AO x 3, sleeping comfortably in bed HEENT: PERRLA, pupils bilaterally equal and reactive Chest: Normal vesicular breath sounds, no added sounds, equal good air entry bilaterally CVS: S1-S2 regular, no murmurs, no tachycardia, no gallops, no rubs Abdomen: Soft, obese, mild tenderness in the epigastric, no organomegaly, bowel sounds present Neuro: No focal deficits, no facial deformity, AO x3, power 5/5 in all limbs Data 04/21/25 05:17 04/21/25 05:17 Micro: Microbiology 04/20/25 18:15 Blood Culture - Preliminary Blood SPECIMEN COLLECTED 04/20/25 18:21 Blood Culture - Preliminary Blood SPECIMEN COLLECTED A&P Assessment and plan (1) Nausea and vomiting in adult: (2) BRBPR (bright red blood per rectum): (3) Epigastric abdominal pain: (4) with 20 completed weeks gestation: Plan 35-year-old lady with past medical history of pancreatitis during who is 20-week presents with complaint of nausea, vomiting, cramping epigastric pain for last 4 days with not able to keep anything down for last 2 days and bright blood per rectum since today morning. Check hCG. Cannot rule out pancreatitis. Lipase within normal limits. Ultrasound abdomen appreciated without acute abnormalities. LFTs found to be in normal range. Normal alkaline phosphatase. Postcholecystectomy. Could be hyperemesis gravidarum but would not explain bright blood per rectum. Appreciate surgical consultation. No concerns for hemorrhoids. Given use of Sallad recently along with well water cannot rule out gastroenteritis. Check respiratory viral panel, stool studies. C. difficile negative. Blood culture, urine culture, GI panel with concerns for possible Listeria. Empirically start on IV meropenem every 8 hourly. Confirm with [employer] INST[employer]ER and safety in . Hemoglobin so far stable. Check CBC daily. Negative respiratory viral panel. IV fluids with NS at 100 cc/h. Zofran every 6 hour. Can use Phenergan if needed as per [employer]. Protonix 40 mg IV daily. Other treatment as per primary team. Plan for the day: Stool studies not yet collected. Requested to see if can be collected for further evaluation. Follow-up blood cultures urine culture. Replace 40 mg of oral potassium. Metabolic acidosis resolving. Continue with empiric meropenem for now. Continue with Zofran, Phenergan as needed, Protonix daily. Can add Maalox as needed. Trial of clear liquid diet. If able to tolerate liquid diet without nausea or vomiting most likely can transition to oral antibiotic. Will defer to primary team. PDMP PDMP Reviewed: Not Reviewed Attestations 2 Medical Necessity Statement*: As per primary team. Diagnoses Nausea and vomiting in adult R11.2 BRBPR (bright red blood per rectum) K62.5 Epigastric abdominal pain R10.13 with 20 completed weeks gestation Z3A.20
--- NOTE | 2025-04-21 12:41 | US_ITS ---
WS: [id number] LIMITED OBSTETRICAL ULTRASOUND HISTORY: dates, size and fluid. COMPARISON: None available. Presentation: Breech Cervix: Limited evaluation of the cervix. Cervix is not identified. Placenta: Anterior, no previa. Grade: 1 HEART: FHR of 144 BPM. measurements: BPD = 4.1 cm = 18w2d; HC = 15.8 cm = 18w5d; AC = 13.3 cm = 18w6d; FL = 2.6 cm = 18w0d; Normal amniotic fluid. EFW: 239.6 g; 22.5 % AGA by ultrasound: 18w3d JILL by ultrasound: 09/19/2025 US/US OB limited [id number] IMPRESSION: 1. Single intrauterine gestation of 18w3d with an JILL of 09/19/2025. 2. Breech. 3. Cervix is not identified. 4. Normal amniotic fluid.
--- NOTE | 2025-04-21 12:49 | PC.NURSE ---
dr. cardoso at bedside, bedside us for fht, baby's hr 150s
[2025-04-21] MEDS: potassium chloride ER 20 mEq Tablet 40 MEQ PO (12:54)
--- NOTE | 2025-04-21 12:54 | PM.PN ---
Subjective Subjective: The patient says she is better today. She has been keeping down clear fluids. She has not needed the pain medicine since yesterday. Her abdominal pain is significantly better and she has not had a bowel movement since the ER. Vitals/I&O/Wt Last Vital Signs Temp 98.0 F 04/21/25 12:00 Pulse 69 04/21/25 12:00 Resp 15 04/21/25 12:00 BP 121/78 04/21/25 07:40 Pulse Ox 98 04/21/25 12:00 O2 Del Method Room Air 04/21/25 12:00 FiO2 21 04/21/25 00:11 04/20/25 04/21/25 04/21/25 22:59 06:59 14:59 Intake Total 1250 / 2250 950 / 3200 240 / 240 Output Total 240 / 240 Balance 1250 / 2250 710 / 2960 240 / 240 Weight last 48 hrs Weight 122.924 kg Weight 122.924 kg Weight 122.924 kg Physical Exam Narrative: Alert, resting in bed, heart regular rate and rhythm, lungs clear to auscultation bilaterally, abdomen is soft with minimal epigastric tenderness, no rebound, no guarding, trace extremity edema and no calf tenderness, fundus is nontender and only palpable with deep palpation Data 04/21/25 05:17 04/21/25 05:17 Micro: Microbiology 04/20/25 18:15 Blood Culture - Preliminary Blood SPECIMEN COLLECTED 04/20/25 18:21 Blood Culture - Preliminary Blood SPECIMEN COLLECTED Other data: FHT done by u/s 150, positive movement visualized. A&P Assessment and plan (1) AGE (acute gastroenteritis): The patient is much improved today. She is tolerating clears. If her pain remains controlled and she is tolerating clears we could likely discharge home later today. While it is possible this could be Listeria, there are many other etiologies to consider including both bacterial and viral. (Of note the patient does have a tendency to have recurrent nausea, vomiting and abdominal pain -it occurred both in her first and also in 2023.) Stool studies and blood cultures will be pending for a few days. She has not had any bowel movement since admission so she has not had any further bright red blood per rectum. (2) Elevated blood pressure complicating in second trimester, antepartum: The patient denies any known history of chronic blood pressure issues. She denies any history of blood pressure issues during her prior pregnancies. While she does not check her blood pressure regularly she says that it typically runs in the 120s. She has had several 150s over 80s. It is unclear if this is/was due to pain. I am going to obtain a urine protein creatinine ratio. Her LFTs were within normal limits, platelets within normal limits, and pain was definitely epigastric and not right upper quadrant. I do NOT have any concern for early onset preeclampsia at this time. Given body habitus I suspect a component of chronic hypertension. The patient was educated that she has had several mildly elevated blood pressures and will need to be followed closely during her . She is unsure who she will establish with. (3) BRBPR (bright red blood per rectum): Resolved, hemoglobin down a little bit from admission from - but this is partly dilutional since the patient was very dehydrated. Also in we expect a mild anemia to be present. As stated above the patient has had no further bright red blood per rectum. She has not had a bowel movement since the ER. (4) with 20 completed weeks gestation: The patient's history is a little bit inconsistent. She stated that her due date was 09/03/25 by her LMP. When asked about her LMP she stated it was 12/10/24 which would give a due date of 09/16/2025 putting her at 18 weeks 6 days. She is not sure then where the September 03 date comes from because she was under the assumption it was from her LMP.... We were trying to obtain records but it turns out the patient's early ultrasound was just a 'first look' done in [place]. We will see if they obtained any size and dates but it is doubtful. I am going to order a limited ultrasound for size and dates. Also when questioned further the patient really has not seen a mathematical statistician yet for this . She denies having any labs drawn yet. PDMP PDMP Reviewed: Not Reviewed Attestations Medical Necessity Statement*: Intractable pain, nausea and vomiting requiring IV fluids and pain medication Coding Level of Care Code Acute Code for Chg Fwd Diagnoses AGE (acute gastroenteritis) K52.9 Elevated blood pressure complicating in second trimester, antepartum O16.2 BRBPR (bright red blood per rectum) K62.5 with 20 completed weeks gestation Z3A.20
[2025-04-21 14:46] LABS: C.Diff PCR (Lab) NEGATIVE (Negative)
[2025-04-21] MEDS: sodium chloride 0.9% 1,000 ML 100 ML IV (15:38)
[2025-04-21] MEDS: pantoprazole 40 mg SDV IVP (15:39)
[2025-04-21 18:07] LABS: Urine Creatinine 239 mg/dL (28-217)
[2025-04-21 18:09] LABS: Urine Protein Random 24 mg/dL
--- NOTE | 2025-04-21 19:47 | PC.NURSE ---
pt got discharge orders in. Pt was aware of needing to sign papers when her ride arrived. When the patients got her the nurse went to print off her discharge paperwork and the pt left before signing them. The nurse did remove IV and any wires or tubing before the pts ride arrived
--- NOTE | 2025-04-27 12:12 | PM.DCS ---
Discharge Providers Date of Admission: 04/20/25 16:52 Date of Discharge: April 27, 2025 Attending Provider at Admission: Beverly Paiz MD Attending Provider at Discharge: Beverly Paiz MD Diagnoses at Discharge Discharge Diagnosis (1) AGE (acute gastroenteritis): Status: Acute (2) Elevated blood pressure complicating in second trimester, antepartum: Status: Acute (3) BRBPR (bright red blood per rectum): Status: Acute (4) with 20 completed weeks gestation: Status: Acute Reason for Visit Reason for Visit: N/V/D Hospital Course Hospital Course This is a 35-year-old G4, P3 at 18 weeks 5 days gestation who presented to the ER with intractable nausea vomiting, epigastric pain and bloody diarrhea. She was given antiemetics and morphine in the ER. She was admitted to the floor for observation and IV fluids as well as IV antibiotics and PPI. The patient improved overnight and the following morning was taking clears po. She did not require any further antiemetics or pain medication. Her epigastric pain had significantly improved. She had no further bowel movements since admission. heart tones were difficult to obtain with abdominal Doppler, so bedside ultrasound was performed for heart tones in the 150s. Ultrasound for size dates and fluid was performed as the patient has not had any care yet for this . Patient had admitted to [facility] prior to becoming sick and was started on antibiotics appropriate to cover for possible Listeria. White blood count was normal and the patient was afebrile. Cultures were currently pending. Since the patient was tolerating clear fluids and her symptoms had mostly resolved she was discharged home on a PPI, and Augmentin. She was not requiring antiemetics. The patient had a few elevated blood pressures in the 150s during her hospitalization but mostly in the 120s. It is unclear if her elevated blood pressures were secondary to her abdominal pain. A urine protein creatinine ratio was obtained and was 0.1. The patient was informed that she would need to have close follow-up on her blood pressures to determine if these are simply situational or chronic hypertension in . Physical Exam Narrative: See progress note Discharge Data Studies Completed and Pending Completed Studies During Hospitalization Category Date Time Status US OB limited 16233 Stat Ultrasound 04/21/25 12:41 Completed US abdomen complete* 19267 Stat Ultrasound 04/20/25 13:12 Completed Pending at discharge Category Date Time Status Gastrointestinal Pathogen Healy Routine Lab 04/20/25 13:16 Received OVA and Parasites, Conc and PE Routine Lab 04/20/25 13:16 Received Radiology Impressions Abdomen Ultrasound 04/20/25 13:12 IMPRESSION: 1. Prior cholecystectomy. 2. No other acute findings Obstetrics Ultrasound 04/21/25 12:41 IMPRESSION: 1. Single intrauterine gestation of 18w3d with an JILL of 09/19/2025. 2. Breech. 3. Cervix is not identified. 4. Normal amniotic fluid. Laboratory Results WBC 7.50 10^3/uL (3.29-11.43) 04/21/25 05:17 RBC 3.66 10^6/uL (3.85-5.65) L 04/21/25 05:17 Hgb 11.00 g/dL (11.27-16.99) L 04/21/25 05:17 Hct 34.3 % (36-47) L 04/21/25 05:17 MCV 93.7 fl (85-98) 04/21/25 05:17 MCH 30.1 pg (27-33) 04/21/25 05:17 MCHC 32.1 g/dL (30-55) 04/21/25 05:17 RDW 14.0 % (12.1-15.1) 04/21/25 05:17 Plt Count 208 10^3/cmm (157-399) 04/21/25 05:17 MPV 10.3 fL (7.4-10.4) 04/21/25 05:17 Neut % (Auto) 76.0 % 04/21/25 05:17 Lymph % (Auto) 16.0 % 04/21/25 05:17 Barren % (Auto) 7.5 % 04/21/25 05:17 Eos % (Auto) 0.1 % 04/21/25 05:17 Baso % (Auto) 0.1 % 04/21/25 05:17 Neut # (Auto) 5.70 10^3/uL (1.8-7.7) 04/21/25 05:17 Lymph # (Auto) 1.2 10^3/uL (0.8-4.8) 04/21/25 05:17 Barren # (Auto) 0.6 10^3/uL (0.2-0.9) 04/21/25 05:17 Eos # (Auto) 0.0 10^3/uL (0.0-0.8) 04/21/25 05:17 Baso # (Auto) 0.0 10^3/uL (0.0-0.1) 04/21/25 05:17 Nucleated RBC % (auto) 0 % 04/21/25 05:17 Nucleated RBCs # 0.0 /100WBC 04/21/25 05:17 Sodium 136 mmol/L (136-145) 04/21/25 05:17 Potassium 3.2 mmol/L (3.5-5.1) L 04/21/25 05:17 Chloride 106 mmol/L (98-107) 04/21/25 05:17 Carbon Dioxide 18 mmol/L (22-29) L 04/21/25 05:17 Anion Gap 15.2 (5-19) 04/21/25 05:17 BUN 4 mg/dL (6-20) L 04/21/25 05:17 Creatinine 0.5 mg/dL (0.5-0.9) 04/21/25 05:17 GFR Calculation 140.4 mL/min (90-130) H 04/21/25 05:17 Glucose 104 mg/dL (65-115) 04/21/25 05:17 Estimat Average Glucose 120 04/21/25 05:17 Hemoglobin A1c 5.8 % (4.0-6.0) 04/21/25 05:17 Calculated Osmolality 279 mOsm/kg (285-295) L 04/21/25 05:17 Lactic Acid 0.8 mmol/L (0.5-2.2) 04/20/25 19:05 Calcium 7.7 mg/dL (8.5-10.5) L 04/21/25 05:17 Phosphorus 2.4 mg/dL (2.5-4.5) L 04/21/25 05:17 Magnesium 1.9 mg/dL (1.7-2.3) 04/21/25 05:17 Iron 24 ug/dL (37-145) L 04/20/25 12:00 TIBC 437 mcg/dl 04/20/25 12:00 % Saturation 5.4 % (20-50) L 04/20/25 12:00 Unsat Iron Binding 413 ug/dL (112-347) H 04/20/25 12:00 Total Bilirubin 0.2 mg/dL (0.15-1.2) 04/21/25 05:17 AST 8 U/L (0-32) 04/21/25 05:17 ALT 12 U/L (0-33) 04/21/25 05:17 Alkaline Phosphatase 56 U/L (35-105) 04/21/25 05:17 Total Protein 5.8 g/dL (6.6-8.7) L D 04/21/25 05:17 Albumin 3.2 g/dL (3.5-5.2) L 04/21/25 05:17 Globulin 2.6 g/dL (1.3-4.6) 04/21/25 05:17 Lipase 41 U/L (13-60) 04/20/25 12:00 Procalcitonin 0.07 ng/mL (0-0.5) 04/21/25 05:17 HCG, Qual Positive (Negative) H 04/20/25 12:00 Urine Color Dark yellow (Yellow) A 04/20/25 14:35 Urine Appearance Turbid (CLEAR) A 04/20/25 14:35 Urine pH 5.5 (5-7) 04/20/25 14:35 Ur Specific Kingsley 1.031 (1.005-1.030) H 04/20/25 14:35 Urine Protein 1+ (Negative) A 04/20/25 14:35 Urine Glucose (UA) Negative (Normal) 04/20/25 14:35 Urine Ketones 4+ (Negative) 04/20/25 14:35 Urine Blood Negative (Negative) 04/20/25 14:35 Urine Nitrate Negative (Negative) 04/20/25 14:35 Urine Bilirubin Negative (Negative) 04/20/25 14:35 Urine Urobilinogen 1.0 mg/dL (Negative) 04/20/25 14:35 Ur Leukocyte Esterase Trace (Negative) A 04/20/25 14:35 Urine RBC 0-2 /hpf (0-2) 04/20/25 14:35 Urine WBC 6-10 /hpf (0-5) 04/20/25 14:35 Ur Squamous Epith Cells 21-50 /hpf (0-5) H 04/20/25 14:35 Amorphous Sediment 4+ /hpf 04/20/25 14:35 Urine Bacteria 1+ /hpf (NONE) H 04/20/25 14:35 Hyaline Casts 5.77 /lpf 04/20/25 14:35 U Random Total Protein 24 mg/dL 04/20/25 14:35 Urine Creatinine 239 mg/dL (28-217) H 04/20/25 14:35 Protein/Creatinin Ratio 0.10 mg/mg CR 04/20/25 14:35 Adenovirus (PCR) Not detected (NOT DETECT) 04/20/25 20:23 C. pneumoniae DNA (PCR) Not detected (NOT DETECT) 04/20/25 20:23 C. difficile (PCR) Negative (Negative) 04/20/25 13:16 Coronavirus 229E (PCR) Not detected (NOT DETECT) 04/20/25 20:23 Human Metapneumovir PCR Not detected (NOT DETECT) 04/20/25 20:23 Influenza A (H1) PCR Not detected (NOT DETECT) 04/20/25 20:23 Influ A (H1/09) PCR Not detected (NOT DETECT) 04/20/25 20:23 Influenza A (H3) PCR Not detected (NOT DETECT) 04/20/25 20:23 Influenza Type A (PCR) Not detected (NOT DETECT) 04/20/25 20:23 Influenza Type B (PCR) Not detected (NOT DETECT) 04/20/25 20:23 M. pneumoniae (PCR) Not detected (NOT DETECT) 04/20/25 20:23 Parainfluenza 1 (PCR) Not detected (NOT DETECT) 04/20/25 20:23 Parainfluenza 2 (PCR) Not detected (NOT DETECT) 04/20/25 20:23 Parainfluenza 3 (PCR) Not detected (NOT DETECT) 04/20/25 20:23 Parainfluenza 4 (PCR) Not detected (NOT DETECT) 04/20/25 20:23 RSV Type A (PCR) Not detected (NOT DETECT) 04/20/25 20:23 RSV Type B (PCR) Not detected (NOT DETECT) 04/20/25 20:23 Entero/Rhino (PCR) Not detected (NOT DETECT) 04/20/25 20:23 SARS-CoV-2 (PCR) Not detected (NOT DETECT) 04/20/25 20:23 Vitals Last Vital Signs Temp 98.0 F 04/21/25 16:00 Pulse 79 04/21/25 16:00 Resp 16 04/21/25 16:00 BP 106/67 04/21/25 16:00 Pulse Ox 99 04/21/25 16:00 O2 Del Method Room Air 04/21/25 16:00 FiO2 21 04/21/25 00:11 Discharge Plan Discharge Patient Disposition: Home Condition: Stable Prescriptions: Continued [id number] 6-dha 30-1-300 mg Capsule 1 cap PO DAILY Discharge Orders: Discharge Order (Routine); Ordered 04/21/25 Ordered By: Beverly Paiz Referrals: Arnie Rodrigez MD [Physician, Family Practice] - 05/02/25 9:45 am Discharge Diet: Advance as tolerated and Clear Liquid Discharge Activity: Resume usual activity Patient Instructions: Diarrhea - Adult, Amoxicillin/Clavulanate Potassium (By mouth), Pantoprazole (By mouth), Gastroenteritis (DC), Opioid Safety Activity Restrictions/Additional Instructions: Please Take all of the 875/125 MG Augmentin as prescribed. 1 pill by mouth twice a day for 14 days. Protonix 40mg 1 by mouth daily for 14 days. Follow up with your primary care doctor. Discharge Attestations Time Spent in Discharge Care*: less than 30 min Quality Metrics Clinical Quality Measures [ No reported AMI, CVA or VTE this stay] Coding Level of Care Code Acute Code for Chg Fwd Diagnoses AGE (acute gastroenteritis) K52.9 Elevated blood pressure complicating in second trimester, antepartum O16.2 BRBPR (bright red blood per rectum) K62.5 with 20 completed weeks gestation Z3A.20
[2025-04-27 17:44] LABS: Campylobacter Group DETECTED (NOT DETECTED); Norovirus GI/GII NOT DETECTED (NOT DETECTED); Rotavirus A NOT DETECTED (NOT DETECTED); Shiga Toxin 1 NOT DETECTED (NOT DETECTED); Shigella Species NOT DETECTED (NOT DETECTED); Vibrio Group NOT DETECTED (NOT DETECTED); Yersinia Enterocolotica NOT DETECTED (NOT DETECTED)
== END 2025-04-21 19:41 | disposition home or self-care (01) ==
LOC: ER 11:30 → MEDSURG 16:53
PROVIDERS: Student in an Organized Health Care Education/Training Program; Admitting Provider Family Medicine; Emergency Provider Family Medicine; Visit Provider Family Medicine
DX: O99.612 Diseases of the digestive system complicating pregnancy, second trimester (principal); O16.2 Unspecified maternal hypertension, second trimester; Z3A.20 20 weeks gestation of pregnancy; K52.9 Noninfective gastroenteritis and colitis, unspecified; K92.1 Melena
CPT/HCPCS: 36415; 76700; 76815; 80053; 81001; 82274; 82570; 83036; 83540; 83550; 83605; 83630; 83690; 83735; 84100; 84145; 84156; 84703; 85025; 86403; 87040; 87086; 87177; 87209; 87486; 87493; 87506; 87581; 87633; 94664; 96365; 96375; 96376; 99285; G0378; J2185; J2270; J2405; J2470; J7030; J9999

== ENCOUNTER 2025-05-24 07:41 | Emergency (ER) | payer SELFPAY ==
[2025-05-24 07:47] VITALS: BP 148/88; PULSE 82; RESP 17; TEMP 36.6; O2SAT 100; BMI 41.0
--- NOTE | 2025-05-24 07:53 | W.ED.SKABFB ---
HPI - Skin/Abscess/Foreign Bdy General: Chief complaint: Skin/Abscess/Foreign Body Stated complaint: poision daphney, bug in ear Time Seen by Provider: 05/24/25 07:52 History of Present Illness: 35-year-old female presents emergency room complaining of having a bug in her left ear. She is gradually at the left ear she is not having bleeding from the ear she also complaining of a rash underneath her breasts along the belt line a little bit on her arms and somewhat on her face she thinks she may have gotten into contact with poison daphney. No drainage from the ear no fever sweats or chills Associated symptoms: Deny chills or fever(s) Related Data Home Medications ?Medication ?Instructions ?Recorded ?Confirmed vits no.118-iron asparto 1 cap PO DAILY 04/20/25 04/20/25 30 mg-folate 1 mg-dha 300 mg capsule Previous Rx's ?Medication ?Instructions ?Recorded cetirizine 10 mg tablet 10 mg PO BID #60 tabs 05/24/25 methylprednisolone 4 mg tablets in See Rx Instructions PO .COMPLEX 05/24/25 a dose pack (Medrol (Lupillo)) #21 ea Allergies Allergy/AdvReac Type Severity Reaction Status Date / Time No Known Allergies Allergy Verified 03/04/22 00:37 Review of Systems Const: Denies: fever(s) or chills Card: Denies: chest pain Resp: Denies: dyspnea GI: Denies: abdominal pain : Denies: dysuria, urinary frequency or urinary urgency Musc: Denies: neck pain or back pain Skin/Breast: Reports: rash, pruritus and erythema [facility] ED PFSH: Medical History Pancreatitis Physical Exam Const: COMMON NORMALS: no acute distress GENERAL APPEARANCE: cooperative and comfortable ORIENTATION/CONSCIOUSNESS: Yes awake, Yes oriented to person, Yes oriented to place and Yes oriented to time HENMT: COMMON NORMALS: normocephalic, atraumatic, hearing grossly normal bilaterally, external ears normal, EAC's normal, TM's normal bilaterally and Normal nasal mucous membranes and turbinates present HEAD & SCALP: normocephalic and atraumatic NOSE: Normal nasal mucous membranes and turbinates present EXTERNAL EAR: Yes external ears normal EXTERNAL AUDITORY CANAL: EAC's normal TYMPANIC MEMBRANE: TM's normal bilaterally Resp: COMMON NORMALS: normal respiratory effort, No retractions, No use of accessory muscles and clear to auscultation bilaterally AUSCULTATION: clear to auscultation bilaterally Cardio: COMMON NORMALS: regular rate, regular rhythm and No murmurs present (Cardio) RATE: regular rate RHYTHM: regular rhythm GI: COMMON NORMALS: Soft to palpation and No hepatosplenomegaly present AUSCULTATION: Yes normoactive bowel sounds PALPATION: Yes Soft to palpation, No Tenderness to palpation present (GI), No Guarding due to palpation present (GI) and Yes No hepatosplenomegaly present Extremity: COMMON NORMALS: normal to inspection, capillary refill normal, no clubbing, cyanosis or edema, no calf tenderness and no pedal edema Neuro: SENSORIUM/ORIENTATION: Yes oriented to person, Yes oriented to place and Yes oriented to time Skin: OTHER: Mildly inflamed rash with different appearances under the breast is more petechial-like reddened areas. About the hips at the belt line somewhat on the back and on the proximal extremities mildly reddened slightly raised no urticaria no vesicles. Also noted on the flank a little more on the right than the left. Mild redness to the face but no raised areas Course Vital Signs: Vital signs: Vital Signs Temperature 97.8 F 05/24/25 07:47 Pulse Rate 91 05/24/25 08:10 Respiratory Rate 17 05/24/25 07:47 Blood Pressure 144/88 05/24/25 08:10 Pulse Oximetry 96 05/24/25 08:10 Oxygen Delivery Me thod Room Air 05/24/25 07:47 MDM - Skin/Abscess/Foreign Bdy Medicial Decision Making No foreign bodies in either ear. Specifically in the left ear there is no foreign bodies there is no wax adjacent to the ear canal there is a scant bit of wax at the posterior wall of the outermost portion of the ear canal. There is no occlusion of the ear canal the TM itself appears normal. No sign of any excoriation irritation or inflammation of the TM. Advised the patient to of normal exam finding she thinks the bug may have gotten out and route to the emergency room. There is no way to be certain in either event there is nothing present in the ear canal at this time the rash is irregular throughout the body will put her on a short course of steroids and cetirizine. No radiology studies performed this visit Discharge Plan Discharge Patient Disposition: Home Clinical Impression: Dermatitis Condition: Stable Prescriptions: New cetirizine 10 mg tablet 10 mg PO BID Qty: 60 0RF methylprednisolone [Medrol (Lupillo)] 4 mg tablets,dose pack See Rx Instructions .ROUTE .COMPLEX Qty: 21 0RF Rx Instructions: orally per package directions No Action [id number] 6-dha 30-1-300 mg Capsule 1 cap PO DAILY Discharge Orders: Discharge ED (Routine); Ordered 05/24/25 Ordered By: Ermias Escudero Discharge Diet: Usual diet Discharge Activity: Resume usual activity Patient Instructions: Opioid Safety, Pain Management Activity Restrictions/Additional Instructions: Thank you for choosing [facility] for your healthcare needs today. It is very important that you follow up as instructed or that you return to the Emergency Department should you have concerns or if your condition changes or worsens in any way. You are seen in the emergency room with complaints of having a bug in your left ear. On examination here there is no evidence of any foreign body there is a very scant bit of wax in the ear but no foreign bodies no bugs. He did have a rash that is irregularly spread around the body and does not have. It appeared to be a rash consistent with poison daphney. Recommend you use cetirizine 10 mg 1 tablet twice a day prednisone taper follow-up with your doctor if persists Print Language: Amharic Coding Level of Care Code ED Vegetable Handler for Lee Swan
[2025-05-24 08:10] VITALS: BP 144/88; PULSE 91; O2SAT 96
== END 2025-05-24 08:11 | disposition home or self-care (01) ==
PROVIDERS: Emergency Provider Family Medicine
DX: L30.9 Dermatitis, unspecified (principal)
CPT/HCPCS: 99283

== ENCOUNTER 2025-10-03 13:22 | Inpatient (IN) | payer SELFPAY ==
--- OUTSIDE RECORDS SUMMARY | 2024-10-18 07:00 | XMS_ITS ---
Author Organization [facility] Address [address] [place] [address] Care Team Providers Care Cellophane Casting Machine Repairer Name Role Phone BEN HASSAN, MANASA Benítez Unavailable Manasa Valdivia [phone] REASON FOR VISIT 2 yrs/pap Encounters Encounter Location Date Provider Diagnosis [address] [place] [address] 10/18/2024 Manasa Valdivia Plan Of Treatment No Information Progress Notes * Harper ELISE GDOB:1990 (35 yo F)Acc No.[id number]:10/18/2024 Patient: Harper Tolentino Provider: Maame Valdivia MD :1990 A ge:34 Y S ex:Female Date:10/18/2024 Address:[facility] [address] [address] [place] [address] Subjective: * Chief Complaints: * 2 yrs/pap * Electronic signature of Jonathon Valdivia MD on 10/03/2025 at 02:20 PM CARPENTER'S HELPER Sign off status: Pending * Provider: Maame Valdivia MD Date: 12/18/2023 Generated for Franci mccloud/Juan/eTransmitting on: 12/03/2024 02:20 PM CARPENTER'S HELPER
--- OUTSIDE RECORDS SUMMARY | 2025-01-24 08:00 | XMS_ITS ---
Author Organization [facility] Address [address] [facility] [place] [address] Care Team Providers Care Lead Sales Consultant Name Role Phone MANASA VALDIVIA MD Unavailable Manasa Valdivia [phone] REASON FOR VISIT 01/2025 PAP Encounters Encounter Location Date Provider Diagnosis [address] [place] [address] 01/24/2025 Manasa Valdivia Plan Of Treatment No Information Progress Notes * Harper ELISE GDOB:1990 (35 yo F)Acc No.[id number]:01/24/2025 Patient: Harper Tolentino Provider: Maame Valdivia MD :1990 A ge:34 Y S ex:Female Date:01/24/2025 Address:[facility] [address] [address] [place] [address] Subjective: * Chief Complaints: * PAP * Electronic signature of Jonathon Valdivia MD on 10/03/2025 at 02:20 PM CLINIC CLERK Sign off status: Pending * Provider: Maame Valdivia MD Date: 0 01/24/2025 Generated for Franci mccloud/Juan/Arnulfoitting on: 12/03/2024 02:20 PM CLINIC CLERK
--- OUTSIDE RECORDS SUMMARY | 2025-05-25 02:30 | XMS_ITS ---
Author Organization [facility] Address [address] [place] [address] Care Team Providers Care Shop Foreman Name Role Phone MANASA VALDIVIA MD Unavailable Manasa Valdivia Unavailable [phone] REASON FOR VISIT after u/s Medications Medication SIG (Take, Route, Frequency, Duration) Notes Start Date End Date Status PNV Unknown Enoxaparin Sodium 40 MG/0.4ML Solution 0.4 ml Subcutaneous Once a day; Duration: 30 day(s) 01/09/2022 Unknown Encounters Encounter Location Date Provider Diagnosis [address] [place] [address] 05/25/2025 Manasa Valdivia Plan Of Treatment No Information Progress Notes * Harper ELISE GDOB:1990 (35 yo F)Acc No.[id number]:05/25/2025 Patient: Rod bautista Harper Mejia Provider: Maame Valdivia MD :1990 A ge:35 Y S ex:Female Date:05/25/2025 Address:[address] [place] [address] [place] [id number] Subjective: * Chief Complaints: * A fter u/s * OB History: P regnancy # 1: P rimary 03/23/2012 8.4 oz male. * Medications: U nknownEnoxaparin Sodium 40 MG/0.4ML Solution 0.4 ml Subcutaneous Once a day PNV Unknown Enoxaparin Sodium 40 MG/0.4ML Solution 0.4 ml Subcutaneous Once a day Unknown PNV * Electronic signature of Jonathon Valdivia MD on 10/03/2025 at 02:20 PM TABLE SAW OPERATOR Sign off status: Pending * Provider: Maame Valdivia MD Date: 0 05/25/2025 Generated for Franci mccloud/Juan/Marybel on: 1 12/03/2024 02:20 PM TABLE SAW OPERATOR
[2025-10-03] VITALS (7 sets, daily range): BP systolic 130–151; BP diastolic 70–91; PULSE 79–98; RESP 17; TEMP 37.1; O2SAT 99; BMI 41.0
[2025-10-03] MEDS: oxytocin 30 UNIT/500 ML BAG 600 UNIT IV (14:00)
--- OUTSIDE RECORDS SUMMARY | 2025-10-03 14:20 | XMS_ITS | Patient Health Record ---
Author Organization [facility] Address [address] [place] [address], [place] [address] Care Team Providers Care Ammunition Assembly I Laborer Name Role Phone MANASA VALDIVIA MD Unavailable Unavailable Manasa Valdivia Unavailable [phone] Allergies No Known Allergies Results Component Value Reference Range Flag Notes Comprehensive Metabolic Pane l (CMP) 12652 Reviewed date:04/26/2025 09:09:02 PM Interpretation: Performing Lab: Notes/Report: 2303@0526 Glucose Serum 130 71-110 MG/DL HI Testing p erformed at [facility], [address] [place] [address] [place] [address]. CLIA ID#: [id number] BUN 6 7-21 MG/DL LOW Creat .43 .51-1.17 MG/DL LOW K-sugaqq-k-benzoquinon e imine (NAPQI) is a metabolite of acetaminophen, NAPQI concentrations of apparoximately 10 mg/L correlation to toxic levels of acetaminophen demonstrates a greater than or equil to 10% change in results. NAPQI concentrations greater than this may lead to falsely depressed results for patient samples. Use of this assay is not recommended for patients undergoing treatment with phenindione, due to the potential for falsely depressed results. GFR 130.0 NA Calculation pe rformed from GFR calculator provided by the [employer]. Glomerular Filtration rate(GRF) is the best overall index of kidney function. Normal GFR varies according to age,sex, body size, and declines with age. The National [employer] recommends using the CKD-EPI Creatinine Equation(2020) to estimate GFR. BUN/Creat Ratio 14.0 12.0-20.0 % Total Protein 6.6 5.8-8.0 G/DL Albumin 4.2 3.2-4.8 G/DL Globulin 2.4 2.3-3.5 G/DL Alb/Glob 1.8 0.8-2.2 Calcium 9.0 8.7-10.4 MG/DL Sodium 131 136-145 MMOL/L LOW Potassium 3.5 3.5-5.1 MMOL/L Chloride 99 98-107 MMOL/L CO2 23.4 20.0-31.0 MMOL/L Anion Gap 12 5-15 Alk Phos 79 46-116 Bili Total .3 .3-1.2 MG/DL Use of this assay is not recommended for patients undergoing treatment with eltrombopag due to the potential for falsely elevated results. AST/SGOT 35 15-37 UNIT/L ALT/SGPT 93 12-78 UNIT/L HI Osmo Serum,Calculated 271 280-300 MOSM/KG LOW Comprehensive Metabolic Pane l (CMP) 07582 Reviewed date:04/26/2025 09:09:02 PM Interpretation: Performing Lab: Notes/Report: 2303@0526 Glucose Serum 127 71-110 MG/DL HI Testing p erformed at [facility], [address] [place] [address] [place] [address]. CLIA ID#: [id number] BUN <5 7-21 MG/DL LOW Creat .41 .51-1.17 MG/DL LOW Use of this assay is not recommended for patients undergoing treatment with phenindione, due to the potential for falsely depressed results. I-kwwwle-z-benzoquinon e imine (NAPQI) is a metabolite of acetaminophen, NAPQI concentrations of apparoximately 10 mg/L correlation to toxic levels of acetaminophen demonstrates a greater than or equil to 10% change in results. NAPQI concentrations greater than this may lead to falsely depressed results for patient samples. GFR 131.2 NA Calculation pe rformed from GFR calculator provided by the [employer]. Glomerular Filtration rate(GRF) is the best overall index of kidney function. Normal GFR varies according to age,sex, body size, and declines with age. The National [employer] recommends using the CKD-EPI Creatinine Equation(2020) to estimate GFR. BUN/Creat Ratio <12.2 12.0-20.0 % Total Protein 6.4 5.8-8.0 G/DL Albumin 3.9 3.2-4.8 G/DL Globulin 2.5 2.3-3.5 G/DL Alb/Glob 1.6 0.8-2.2 Calcium 8.3 8.7-10.4 MG/DL LOW Sodium 132 136-145 MMOL/L LOW Potassium 3.0 3.5-5.1 MMOL/L LOW Chloride 103 98-107 MMOL/L CO2 21.6 20.0-31.0 MMOL/L Anion Gap 10 5-15 Alk Phos 72 46-116 Bili Total .4 .3-1.2 MG/DL Use of this assay is not recommended for patients undergoing treatment with eltrombopag due to the potential for falsely elevated results. AST/SGOT 28 15-37 UNIT/L ALT/SGPT 59 12-78 UNIT/L Comprehensive Metabolic Pane l (CMP) 44752 Reviewed date:04/26/2025 09:09:02 PM Interpretation: Performing Lab: Notes/Report: Patient in the shower @06:45 LV still in shower @06:58 LV Called and still in shower @07:27 LV 2303@0526 Glucose Serum 132 71-110 MG/DL HI Testing p erformed at [facility], [address] [place] [address] [place] [address]. CLIA ID#: [id number] BUN 6 7-21 MG/DL LOW Creat .50 .51-1.17 MG/DL LOW F-jmcmdj-r-benzoquinon e imine (NAPQI) is a metabolite of acetaminophen, NAPQI concentrations of apparoximately 10 mg/L correlation to toxic levels of acetaminophen demonstrates a greater than or equil to 10% change in results. NAPQI concentrations greater than this may lead to falsely depressed results for patient samples. Use of this assay is not recommended for patients undergoing treatment with phenindione, due to the potential for falsely depressed results. GFR 125.4 NA Calculation pe rformed from GFR calculator provided by the [employer]. Glomerular Filtration rate(GRF) is the best overall index of kidney function. Normal GFR varies according to age,sex, body size, and declines with age. The National Kid[employer] Foundation recommends using the CKD-EPI Creatinine Equation(2020) to estimate GFR. BUN/Creat Ratio 12.0 12.0-20.0 % Total Protein 6.8 5.8-8.0 G/DL Albumin 4.2 3.2-4.8 G/DL Globulin 2.6 2.3-3.5 G/DL Alb/Glob 1.6 0.8-2.2 Calcium 8.4 8.7-10.4 MG/DL LOW Sodium 133 136-145 MMOL/L LOW Potassium 3.4 3.5-5.1 MMOL/L LOW Chloride 103 98-107 MMOL/L CO2 21.9 20.0-31.0 MMOL/L Anion Gap 12 5-15 Alk Phos 76 46-116 Bili Total .3 .3-1.2 MG/DL Use of this assay is not recommended for patients undergoing treatment with eltrombopag due to the potential for falsely elevated results. AST/SGOT 27 15-37 UNIT/L ALT/SGPT 46 12-78 UNIT/L Osmo Serum,Calculated 275 280-300 MOSM/KG LOW Lipase 96868 Reviewed date:04/26/2025 09:09:02 PM Interpretation: Performing Lab: Notes/Report: 2303@0526 Lipase Serum 220 73-393 UNIT/L Magnesium (B) 00100 Reviewed date:04/26/2025 09:09:02 PM Interpretation: Performing Lab: Notes/Report: 2303@0526 Magnesium 2.0 1.8-2.4 MG/DL Magnesium (B) 57125 Reviewed date:04/26/2025 09:09:02 PM Interpretation: Performing Lab: Notes/Report: 2303@0526 Magnesium 1.9 1.8-2.4 MG/DL Magnesium (B) 16201 Reviewed date:04/26/2025 09:09:02 PM Interpretation: Performing Lab: Notes/Report: 2303@0526 Magnesium 2.0 1.8-2.4 MG/DL Phosphorus (B) 37776 Reviewed date:04/26/2025 09:09:02 PM Interpretation: Performing Lab: Notes/Report: 2303@0526 Phos 3.0 2.4-5.1 MG/DL Phosphorus (B) 50685 Reviewed date:04/26/2025 09:09:02 PM Interpretation: Performing Lab: Notes/Report: 2303@0526 Phos 2.3 2.4-5.1 MG/DL LOW Phosphorus (B) 69770 Reviewed date:04/26/2025 09:09:02 PM Interpretation: Performing Lab: Notes/Report: 2303@0526 Phos 1.7 2.4-5.1 MG/DL LOW CBC w\o Diff 22901 Reviewed date:04/26/2025 09:09:02 PM Interpretation: Performing Lab: Notes/Report: 2303@0526 WBC 7.4 4.5-11.0 X10'3 RBC 4.40 4.00-5.20 X10'6 Hgb 12.9 12.0-16.0 G/DL Hct 38.7 36.0-46.0 % MCV 88.0 80.0-100.0 FL MCH 29.3 27.0-31.0 PG MCHC 33.3 31.0-37.0 G/DL Platelet 266 150-400 X10'3 RDW-SD 43.1 35.0-49.0 FL RDW-CV 13.4 12.2-15.6 % MPV 10.4 9.2-12.0 FL Hepatitis Panel Acute 36672 Reviewed date:04/26/2025 09:09:02 PM Interpretation: Performing Lab: Notes/Report: 2303@0526 Hep A IgM Non-Reactive NA Hep.B Core IgM Non-Reactive NA Hepatitis Bs AG Non-Reactive NA Hepatitis C AB Non-Reactive NA Drug Screen Multi Panel 8030 5 Reviewed date:04/26/2025 09:09:02 PM Interpretation: Performing Lab: Notes/Report: 2303@0526 Marijuana-THC Negative Speciman analysis was performed without chain of custody handling. Testing performed by colorimetric method. Confirmation is pending. These resuts should be used for medical purposes only and not for any legal or employment evaluative purposes. In very rare instances, and extremely high drug concentration may field a negative result for any qualitative drug screening assay. The potential for false negative results in these rare instances exsists for all drug screening methods. Cutoff value: 50 ng/mL Specimen Type: Urine Cocaine-LAURO Negative Specimen analysis was performed without chain of custody handling. Testing performed by colorimetric method. Confirmation is pending. These resuts should be used for medical purposes only and not for any legal or employment evaluative purposes. In very rare instances, and extremely high drug concentration may field a negative result for any qualitative drug screening assay. The potential for false negative results in these rare instances exsists for all drug screening methods. Cutoff value: 300 ng/mL Specimen Type: Urine Opiates-MOP Positive Specimen Type: Urine Cutoff value: 2000 ng/mL Speciman analysis was performed without chain of custody handling. Testing performed by colorimetric method. Confirmation is pending. These resuts should be used for medical purposes only and not for any legal or employment evaluative purposes. In very rare instances, and extremely high drug concentration may field a negative result for any qualitative drug screening assay. The potential for false negative results in these rare instances exsists for all drug screening methods. Amphetamine-AMP Negative Speciman analysis was performed without chain of custody handling. Testing performed by colorimetric method. Confirmation is pending. These resuts should be used for medical purposes only and not for any legal or employment evaluative purposes. In very rare instances, and extremely high drug concentration may field a negative result for any qualitative drug screening assay. The potential for false negative results in these rare instances exsists for all drug screening methods. Cutoff value: 1000 ng/mL Specimen Type: Urine Methamphetamines-MET Negative Speciman analysis was performed without chain of custody handling. Testing performed by colorimetric method. Confirmation is pending. These resuts should be used for medical purposes only and not for any legal or employment evaluative purposes. In very rare instances, and extremely high drug concentration may field a negative result for any qualitative drug screening assay. The potential for false negative results in these rare instances exsists for all drug screening methods. Cutoff value: 1000 ng/mL Specimen Type: Urine Phencyclidine-PCP Negative Speciman analysis was performed without chain of custody handling. Testing performed by colorimetric method. Confirmation is pending. These resuts should be used for medical purposes only and not for any legal or employment evaluative purposes. In very rare instances, and extremely high drug concentration may field a negative result for any qualitative drug screening assay. The potential for false negative results in these rare instances exsists for all drug screening methods. Specimen Type: Urine Cutoff value: 25 ng/mL Ecstasy-MDMA Negative Speciman analysis was performed without chain of custody handling. Testing performed by colorimetric method. Confirmation is pending. These resuts should be used for medical purposes only and not for any legal or employment evaluative purposes. In very rare instances, and extremely high drug concentration may field a negative result for any qualitative drug screening assay. The potential for false negative results in these rare instances exsists for all drug screening methods. Specimen Type: Urine Cutoff value: 500 ng/mL Barbiturates-BAR Negative Speciman analysis was performed without chain of custody handling. Testing performed by colorimetric method. Confirmation is pending. These resuts should be used for medical purposes only and not for any legal or employment evaluative purposes. In very rare instances, and extremely high drug concentration may field a negative result for any qualitative drug screening assay. The potential for false negative results in these rare instances exsists for all drug screening methods. Cutoff value: 300 ng/mL Specimen Type: Urine Benzodiazepines-BZO Negative Specimen Type: Urine Cutoff value: 300 ng/mL Speciman analysis was performed without chain of custody handling. Testing performed by colorimetric method. Confirmation is pending. These resuts should be used for medical purposes only and not for any legal or employment evaluative purposes. In very rare instances, and extremely high drug concentration may field a negative result for any qualitative drug screening assay. The potential for false negative results in these rare instances exsists for all drug screening methods. Methadone-MTD Negative Speciman analysis was performed without chain of custody handling. Testing performed by colorimetric method. Confirmation is pending. These resuts should be used for medical purposes only and not for any legal or employment evaluative purposes. In very rare instances, and extremely high drug concentration may field a negative result for any qualitative drug screening assay. The potential for false negative results in these rare instances exsists for all drug screening methods. Specimen Type: Urine Cutoff value: 300 ng/mL Oxycodone-OXY Negative Speciman analysis was performed without chain of custody handling. Testing performed by colorimetric method. Confirmation is pending. These resuts should be used for medical purposes only and not for any legal or employment evaluative purposes. In very rare instances, and extremely high drug concentration may field a negative result for any qualitative drug screening assay. The potential for false negative results in these rare instances exsists for all drug screening methods. Cutoff value: 100 ng/mL Specimen Type: Urine Buprenorphine-BUP Negative Analysis was performed without chain of custody handling. Testing performed by colorimetric method. Confirmation is pending. These resuts should be used for medical purposes only and not for any legal or employment evaluative purposes. In very rare instances, and extremely high drug concentration may field a negative result for any qualitative drug screening assay. The potential for false negative results in these rare instances exsists for all drug screening methods. Specimen Type: Urine Cutoff value: 10 ng/mL Opiates (U) Confirmation G04 80 Reviewed date:04/27/2025 05:21:30 PM Interpretation: Performing Lab: Notes/Report: 2303@0526 Opiates Confirmation Positive Interventional Pain Management Test was performed at: [address] [place] [address] Specimen analysis was performed without chain of custody handling. These results should be used for medical purpose only and not for any legal or employment evaluative purposes. In very rare instances, an extremely high drug concentration may field a negative result for any qualitative drug-screening assay. The potential for false negative results in these rare instances exist for all drug-screening methods. CT Angio Abd/Pelvis w/con, i ncl noncontrast images-62048 Reviewed date:04/26/2025 09:09:02 PM Interpretation: Performing Lab: Notes/Report: See Below For Report CT Angio Abd/Pelvis w/con, incl noncontr please include arterial and venous phase Read See Below For Report US OB Limited-90277 Reviewed date:05/06/2025 07:03:02 PM Interpretation: Performing Lab: Notes/Report: See Below For Report US OB Limited Read See Below For Report H Pylori Breath Test--02753 Reviewed date:04/26/2025 09:09:02 PM Interpretation: Performing Lab: Notes/Report: 2303@0526 H Pylori Breath Test Negative Negative NA urease-positive bacteria. minutes post-dose to prevent a false-negative result. A negative result does not rule out the possibility of H. pylori Known causes of false-negative results include : straw provided in the kit, which can allow contact with 1. Patients with achlorhydria. [address] infection, retest with a new specimen or an alternate method. Helicobacter heilmannii. CLIA Number: [id number] Note: The post-dose sample must be collected between 15 and 20 bismuth preparations during the preceding 2 weeks. Known causes of false-positive results include: Developmental Writing Instructor: Deng Tiwari MD, PhD infection. If clinical signs are suggestive of H. pylori Performed By: [facility] 3. The presence of other gastric spiral organisms such as 1. Ingestion of antimicrobials, proton pump inhibitors, [place] [address] 2. Rinsing the testing solution in the mouth or not using the INTERPRETIVE INFORMATION: Helicobacter pylori, Breath Test Reason For Referral No Information Medications Medication SIG (Take, Route, Frequency, Duration) Notes Start Date End Date Status PNV Unknown Enoxaparin Sodium 40 MG/0.4ML Solution 0.4 ml Subcutaneous Once a day; Duration: 30 day(s) 01/09/2022 Unknown Immunizations Vaccine Route Administration Date Status Comme nts Tdap IM Intramuscular 07/02/2022 Administered Social History Tobacco Use: Social History Observation Description Date Details (start date - stop date) Former Smoker NA - NA Social History Drugs/Alcohol: Social Info Question Answer Notes Alcohol Screen (Audit-C) Did you have a drink containing alcohol in the past year? No Points 0 Interpretation Negative Drugs Have you used drugs other than those for medical reasons in the past 12 months? No Tobacco Use: Social Info Question Answer Notes xTobacco Use/Smoking Are you a former smoker How long has it been since you last smoked? 1-5 years Additional Details Category Social Info Options Details Drugs/Alcohol: Do you smoke marijuana? De nies Do you drink alcohol? 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, works as RN at [employer] Negative x3, lives with husb and and child, safe, 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, works as RN at [employer] Negative x3, lives with husb and and child, safe, 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, works as RN at [employer] Negative x3, lives with husb and and child, safe, 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, works as RN at [employer] Negative x3, lives with husb and and child, safe, 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, works as RN at [employer] Negative x3, lives with husb and and children, safe, 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, works as RN at [employer] Problems Problem Type SNOMED Code ICD Code Onset Dates Problem Status W/U Status Risk Notes Problem Obesity in mother complicating childbirth (disorder) ([id number] 00) Obesity complicating childbirth (O99.214) Active confirmed Problem Obesity (288702328) Obesity (E66.9) Active confirmed Problem Encounter for supervision of normal in first trimester, unspecified (Z34.91) Active confirmed Encounters Encounter Location Date Provider Diagnosis [address] [place] [address] 05/06/2025 Manasa Valdivia 21 weeks gestation of Z3A.21 ; Encounter for other specified screening Z36.89 and Primigravida of advanced maternal age in first trimester O09.[address] [place] [address] 07/27/2025 Manasa Valdivia [address] [place] [address] 07/27/2025 Manasa Valdivia [address] [place] [address] 04/25/2025 Manasa Valdivia Assessments Encounter Date Diagnosis (ICD Code) Assessment Notes Treatment Notes Treatment Clinical Notes Section Notes 05/06/2025 21 weeks gestation of (ICD-10 - Z3A.21) 05/06/2025 Encounter for other specified screening (ICD-10 - Z36.89) 05/06/2025 Primigravida of advanced maternal age in first trimester (ICD-10 - O09.511) Plan Of Treatment No Information Medical (General) History Medical History History ICD Code h/o DVT Surgical History Surgery Date(Month/Year) D&C lap coleen 05/2019 wisdom teeth 2009 section 03/23/2012 Hospitalization History Reason Date(Month/Year) TPN through [facility] due to gallstones and panceatitis @ 8m . Hospitalized until delivery @ 38w. 2012
--- OUTSIDE RECORDS SUMMARY | 2025-10-03 14:20 | XMS_ITS | Patient Health Record ---
[facility] Address [address] [facility] [address] [place] [address] Care Team Providers Care Drum Cleaner Name Role Phone Wendi Mann [phone] Allergies No Known Allergies Reason For Referral No Information Medications Medication SIG (Take, Route, Frequency, Duration) Notes Start Date End Date Status Triamcinolone Acetonide 0.1 % 1 application Externally Twice a day; Duration: 7 days 03/23/2024 Active Social History Sex Assigned At : Social History Observation Description Sex Assigned At Female Plan Of Treatment No Information Insurance Providers Payer Name Payer Address Payer Phone Subscriber Number Group Number Insured Name Patient Relationship to Insured Coverage Start Date Coverage End Date Web [employer] C [address] [address] [place] [phone] [id number] [place] [address] Harper Elise Self - patient is the insured
--- OUTSIDE RECORDS SUMMARY | 2025-10-03 14:21 | XMS_ITS | Data Portability ---
Author Organization [facility] Gabby Fisher [facility] Address [address] [address] [place] [address] Care Team Providers Care Cyber Engineer Name Role Phone BENOIT VALDIVIA Primary Care Provider [phone] Assessment Encounter Date Assessment Date Assessment LastModified by Organization Details LastModified Time 05/02/2025 05/02/2025 We discussed diet and supplements and modifiable risk factors. Patient advised to continue moderate physical activity. Patient will report unusual headaches, visual disturbances, pelvic pain or cramping, vaginal bleeding, rupture of membranes, extreme swelling in hands or face, diminished urine volume, any prolonged illness or infection, or persistent symptoms of labor. [email or web address] Not available 05/02/2025 10:29:29 Plan of Treatment Reminders Order Date Submit Date Provider Last Modified By Organization Details Last Modified Time Details Appointments None record ed. Lab None record ed. Referral None record ed. Procedures None record ed. Surgeries None record ed. Imaging None record ed. Medication Orders None record ed. Patient TargetsNo targets recorded. Patient InstructionsNo instructions recorded. Reason for Referral None Reported. Results Created Date Observation Date Name Description Value Unit Range Abnormal Flag Note LastModifiedBy Organization Detail LastModifiedTime 04/21/2004/21/2025 [place], obste tric No observ ation record ed. [email or web address] [facility] [address] [place], [address], 04/26/2025 10:16:25 Result Notes None recorded. Problems Name Problem SNOMED Code Status Onset Date Resolution Date Notes Provider Name and Address Organization Details Recorded Time 60947845 Active [address] [place] [facility]48 Problem Notes None recorded. Medical Equipment None Reported. Allergies No known drug allergies Medications Name Sig Start Date Stop Date Status Note LastModified by Organization Details LastModified Time sucralfate 100 mg/mL oral suspension TAKE 10 ML BY MOUTH ONCE DAILY BEFORE MEAL(S) AND AT BEDTIME active Not Available Not Available No t Available nifedipine ER 30 mg tablet,extende d release TAKE 1 TABLET BY MOUTH ONCE DAILY active Not Available Not Available No t Available omeprazole 40 mg capsule,delaye d release TAKE 1 CAPSULE BY MOUTH TWICE DAILY active Not Available Not Available No t Available amoxicillin 500 mg tablet TAKE 2 TABLETS BY MOUTH TWICE DAILY FOR 11 DAYS active Not Available Not Available No t Available ondansetron 4 mg disintegrating tablet DISSOLVE 1 TABLET IN MOUTH TWICE DAILY NEEDED FOR NAUSEA AND VOMITING active Not Available Not Available No t Available metoclopramide 10 mg tablet TAKE 1 TABLET BY MOUTH TWICE DAILY active Not Available Not Available No t Available Vitals Date Recorded Body weight Body mass index (BMI) Body height Body temperature Oxygen saturation Oxygen saturation in Arterial blood by Pulse oximetry Heart rate Systolic And Diastolic Provider Name and Address Organization Details Last Updated DateTime 5 862075. 09 g 42.1 kg/m2 172.72 cm 97.5 [degF] 98 % 98 % 90 /min 148/86 mm[Hg] [facility] Social History Question Answer Notes LastModified by [employer] Details LastModified Time Tobacco Smoking Status [facility] 05/02/2025 10:57:34 What Is Your Level Of Caffeine Consumption? Occasional [email or web address] Information not available 05/02/2025 What Was The Date Of Your Most Recent Tobacco Screening? 05/02/2025 Information not available 05/02/2025 Sex: Unknown Functional Status Question Answer Note LastModified by [employer] Details LastModified Time Do you use any illicit or recreational drugs? No [email or web address] Information not available 05/02/2025 What is your level of alcohol consumption? None [email or web address] Information not available 05/02/2025 Mental Status None recorded. Family History Nothing Reported. Medical History No medical history recorded. Gynecological History Statement/Question Response Abnormal Pap N Date of Last Pap Smear Date of LMP 12/20/2024 LMP Approximate Age at First Child 21 Obstetrics History GPAL:G 4 P 3 0 0 3 Type Value Full Term 3 Induced 0 Spontaneous 0 Premature 0 Living 3 Total 4 Past Encounters Encounter ID Performer Location Encounter Start Date Encounter Closed Date Diagnosis/Indication Diagnosis SNOMED-CT Code Diagnosis ICD10 Code Diagnosis IMO Codes Diagnosis Note [id number] Arnie Rodrigez MD [facility] [address] [place] [address] 05/02/2025 10:30:57 05/02/2025 11:23:45 Normal [id number] Z34.90 Z34.92 [id number] Doppler performed today and was reassuring . Patient is to continue follow-up with Dr. Valdivia. Health Concerns Section Related Observation LastModified by Organization Detai ls LastModified Time None Recorded Concern Status LastModified by Organization Details LastModified Time None Recorded Advance Directives Directive None Recorded Payers Insurance Date Sequence Insurance Name Policy Number Policy Marvin Covered Member ID Marvin Member ID Guarantor Name 05/02/2025 1 *SELF PAY* Sarah Perera Notes Date Note Type Note Provider Name and Address Organization Details Recorded Time 05/02/2025 text/html jr ob routineRep orted by PatientHPIFor associated symptoms, patient reportsno abdominal pain,no cramping,no contractions,normal movement,no bleeding,no rom,no vaginal discharge,no vaginal/vulvar itching or irritation,no dysuria,no frequency,no urgency,no hematuria,no fever,no nausea,no emesis,no constipation,no diarrhea/loose stool,no edema,no visual changes,no headache,no dizziness,no decrease in urine volume,no breathlessness, andno hyperreflexia. Pt had 4 day stay at [facility] and treated by Dr. Valdivia and would like to stay with Dr. Valdivia as her OB. Pt stated she previously fired Dr. Valdivia then had a baby at home, and is now again. Pt does not wish to establish care with a new OB doctor so she is here today to be seen as hospital f/u only. She intends to follow-up with Dr. Valdivia. She is 20 weeks along and would like to see if a doppler could be used to hear the heart beat. She has not felt much movement in days. Arnie Rodrigez MD [address] [place] [address], [phone], [facility], [facility] 05/02/2025 15:31:06 OBGyn Episode Ob Episode Information Episode Created Date Number of Fetuses Patient Bloodtype Patient rh Status Prepregnancy Weight lbs Domestic Partner Domestic Partner Phone Father Name Glass Vial Filler Status 05/02/20 25 1 A Positive rashmi pher perera OPEN Fetus Data First Name Last Name Admitted to NICU Weight (g) Sex Living Outcome Pediatric Complications Fetus ID Race Codes Race Delivery Type 8424 Brendan Calculation Initial Brendan Date Initial Exam Date Initial Exam Provider Initial Ultrasound Date Last Menstrual Period Date Ultra Sound Weeks Gestation 05/02/2025 12/20/24 0 Eighteen To Twenty Week Brendan Update Ultra Sound Date Fundal Height At Umbil Quickening Date Ultra Sound Latest Weeks Gestation Final Brendan Confirmed By Final Brendan Confirmed Date Final Brendan Date Ultra Sound Latest Days Gestation 0 09/26/00 25 0 Pre-alen Flowsheet Flowsheet Date 05/02/2025 Lindsay Score Blood Edema Fundus Height Fundus Units Glucose Ketones Leukocytes Nitrite Labor Signs Protein Cervic Dilation Cervic Effacement Cervic Station Type Weight in lbs Pre/Post Dialysis Refused Weight 277.305635409704 BP Diastolic BP Location Tested BP Systolic BP Type 86 148 Fetus Heart Rate Present A 150 Fetus Movement Comments Menstrual History Last Menstrual Date Menses Monthly On Bcp Conception Prior Menses Frequency Hcg Plus Date Menarche Onset Age 0112/20/24 Genetic Screening And Infection History Question Response Note Patient's Age Will Be 35 Yea rs Or Older At Estimated Date of Delivery true Thalassemia (Russian, Panamanian, Mediterranean, Or Background): MCV < 80 false Neural Tube Defect (Meningom yelocele, Spina Bifida, Or Anencephaly) false Congenital Heart Defect false Down Syndrome false Elias-Sachs (eg, Moravian, Cajun, Ghanaian-[place]) f alse Becky Disease false Sickle Cell Disease Or Trait () false Hemophilia Or Other Blood Disorders false Muscular Dystrophy false Cystic Fibrosis false [place]'s Chorea false Intellectual Disability/Autism false If Yes, Was Person Tested For Fragile X? false Other Inherited Genetic Or Chromosomal Disorder false Maternal Metabolic Disorder (eg, Type 1 Diabetes , PKU) false Patient Or Baby's Father Had A Child With Defects Not Listed Above false Recurrent Loss, Or A Stillbirth false Medications (including Suppl ements, Vitamins, Herbs, OTC Drugs), Illicit/Recreational Drugs, Alcohol true If Yes, Agent(s) And Strength/Dosage true omeprazole Any Other Genetic History false Live With Someone With TB Or Exposed To TB false Patient Or Partner Has History Of Genital Herpes false Rash Or Viral Illness Since Last Menstrual Perio d false History Of STD, Gonorrhea, Chlamydia, HPV, Syphi lis false Other Infection History false History of HIV false History of Hepatitis false Prior GBS-infected child false Hemoglobinopathy Or Carrier false Other Structural Defect false Recent Travel History Outside of Country false Mental Retardation/Autism false Delivery Information Delivery Date Delivery Type Labor Anesthesia Weeks Gestation Incision Type Labor Labor Length Hrs Delivered By Post Complications Tubal Sterilization Discharge Date Comments Discharge Information Feeding Method Contraceptive Method Maternal HG B and HCT Levels Ob Episode Information Episode Created Date Number of Fetuses Patient Bloodtype Patient rh Status Prepregnancy Weight lbs Domestic Partner Domestic Partner Phone Father Name Glass Vial Filler Status 05/02/20 25 1 CLOSED Fetus Data First Name Last Name Admitted to NICU Weight (g) Sex Living Outcome Pediatric Complications Fetus ID Race Codes Race Delivery Type 3628.73 6 F Full Term 8427 VAGINAL Brendan Calculation Initial Brendan Date Initial Exam Date Initial Exam Provider Initial Ultrasound Date Last Menstrual Period Date Ultra Sound Weeks Gestation 0 Eighteen To Twenty Week Brendan Update Ultra Sound Date Fundal Height At Umbil Quickening Date Ultra Sound Latest Weeks Gestation Final Brendan Confirmed By Final Brendan Confirmed Date Final Brendan Date Ultra Sound Latest Days Gestation 0 0 Menstrual History Last Menstrual Date Menses Monthly On Bcp Conception Prior Menses Frequency Hcg Plus Date Menarche Onset Age Delivery Information Delivery Date Delivery Type Labor Anesthesia Weeks Gestation Incision Type Labor Labor Length Hrs Delivered By Post Complications Tubal Sterilization Discharge Date Comments 4 home delivery Discharge Information Feeding Method Contraceptive Method Maternal HG B and HCT Levels Ob Episode Information Episode Created Date Number of Fetuses Patient Bloodtype Patient rh Status Prepregnancy Weight lbs Domestic Partner Domestic Partner Phone Father Name Glass Vial Filler Status 05/02/20 25 1 CLOSED Fetus Data First Name Last Name Admitted to NICU Weight (g) Sex Living Outcome Pediatric Complications Fetus ID Race Codes Race Delivery Type 3742.13 4 M Full Term 8425 Brendan Calculation Initial Brendan Date Initial Exam Date Initial Exam Provider Initial Ultrasound Date Last Menstrual Period Date Ultra Sound Weeks Gestation 0 Eighteen To Twenty Week Brendan Update Ultra Sound Date Fundal Height At Umbil Quickening Date Ultra Sound Latest Weeks Gestation Final Brendan Confirmed By Final Brendan Confirmed Date Final Brendan Date Ultra Sound Latest Days Gestation 0 0 Menstrual History Last Menstrual Date Menses Monthly On Bcp Conception Prior Menses Frequency Hcg Plus Date Menarche Onset Age Delivery Information Delivery Date Delivery Type Labor Anesthesia Weeks Gestation Incision Type Labor Labor Length Hrs Delivered By Post Complications Tubal Sterilization Discharge Date Comments [address] [facility] c/s Discharge Information Feeding Method Contraceptive Method Maternal HG B and HCT Levels Ob Episode Information Episode Created Date Number of Fetuses Patient Bloodtype Patient rh Status Prepregnancy Weight lbs Domestic Partner Domestic Partner Phone Father Name Glass Vial Filler Status 05/02/20 25 1 CLOSED Fetus Data First Name Last Name Admitted to NICU Weight (g) Sex Living Outcome Pediatric Complications Fetus ID Race Codes Race Delivery Type 3486.76 1704 M Full Term 8426 Brendan Calculation Initial Brendan Date Initial Exam Date Initial Exam Provider Initial Ultrasound Date Last Menstrual Period Date Ultra Sound Weeks Gestation 0 Eighteen To Twenty Week Brendan Update Ultra Sound Date Fundal Height At Umbil Quickening Date Ultra Sound Latest Weeks Gestation Final Brendan Confirmed By Final Brendan Confirmed Date Final Brendan Date Ultra Sound Latest Days Gestation 0 0 Menstrual History Last Menstrual Date Menses Monthly On Bcp Conception Prior Menses Frequency Hcg Plus Date Menarche Onset Age Delivery Information Delivery Date Delivery Type Labor Anesthesia Weeks Gestation Incision Type Labor Labor Length Hrs Delivered By Post Complications Tubal Sterilization Discharge Date Comments [address] valdivia in [place] [facility] Discharge Information Feeding Method Contraceptive Method Maternal HG B and HCT Levels
--- NOTE | 2025-10-03 14:31 | PM.HP ---
Providers/Chief Complaint Admitting Physician: Beverly Paiz MD Chief Complaint: Vaginal delivery outside of hospital History of Present Illness Harper Elise is a 35 year old female now who presented via private vehicle to L&D holding her pale blue infant and providing chest compressions and breaths to the infant. (per nursing and security staff) On-camera arrival was at 1322. Pt stated the had been born 10, maybe 5 minutes prior to arrival. I was pediatrics on-call, in clinic, and was notified at 1326 of the situation. I presented at 1328 and the patient was lying in the hospital bed in LDR2 with the cord hanging from her introitus with no significant vaginal bleeding. Dr. Escudero and ancillary staff were in the middle of NRT with the who was purple, recently intubated, and receiving chest compressions. They were preparing to give Epinephrine via ET tube and I called for IO access. Dr. Escudero then stated that he had done nothing with the mother so he said he would continue to resuscitate the baby if I took care of the mother. She had an IV placed and we hooked it up to LR at 150 mL/h. at first she was intent on watching baby, which was fine since she was not exhibiting any bleeding. Sometime later she began showing signs of distress and was having significant cramping. Gentle traction was provided on the umbilical cord and the placenta was delivered meconium stained but grossly intact and normal to inspection. A large clot came out along with the placenta. There were some hemostatic vulvar abrasions but no lacerations. No suturing was required. Fundal massage was performed and fundus was firm and hard with minimal vaginal bleeding. The patient was started on Pitocin in addition to the IV fluids she was receiving at 150 mL an hour. EBL 350mL Mother was doing physically fine after delivery, unfortunately the did not make it. Medications/Allergies Home Medications ?Medication ?Instructions ?Recorded ?Confirmed ?Last Taken ?Type vits no.118-iron asparto 1 cap PO DAILY 04/20/25 10/03/25 04/13/25 History 30 mg-folate 1 mg-dha 300 mg capsule cetirizine 10 mg tablet 10 mg PO BID #60 tabs 05/24/25 10/03/25 Unknown Rx methylprednisolone 4 mg tablets in See Rx Instructions PO .COMPLEX 05/24/25 10/03/25 Unknown Rx a dose pack (Medrol (Lupillo)) #21 ea Allergies Allergy/AdvReac Type Severity Reaction Status Date / Time No Known Allergies Allergy Verified 10/03/25 23:51 PFSH Acute PFSH: Medical History (Updated 10/03/25 @ 14:59 by Beverly Paiz MD) Pancreatitis Female Reproductive History: : 4 Para: 3 Other female reproductive history: with first child with second home with third delivered outside of the hospital, , no care. Other PFSH information: Supplemental PFSH Information: Reported hx of drug abuse Physical Exam Narrative: Alert and oriented, obviously distressed about the unfortunate situation. Resp: OTHER: Clear to auscultation Cardio: OTHER: Regular rate and rhythm GI: OTHER: Abdomen nontender, fundus is firm : OTHER: Hemostatic superficial abrasions but no lacerations A&P Assessment and plan 1. Vaginal delivery following previous section, delivered: The patient had delivered the vaginally outside of the hospital prior to arrival. The umbilical cord had still been attached to the and nursing had to clamp and cut in order to begin resuscitation on the . I delivered the placenta grossly intact, meconium stained, but otherwise normal to inspection. I asked the patient if she had been receiving care this and she stated she was seeing Dr. Valdivia in [place]. We contacted Dr. Valdivia's office and they said she had only been seen 1 time early in the and failed to follow-up. They had 1 ultrasound placing her due date at 09/11/25. After logging into the computer it was noted that I had seen the pt as a walk-in for intractable abdominal pain nausea and vomiting back in March. She had been admitted overnight and was discharged the next day. At that time we did a growth ultrasound and her estimated due date was 09/19/2025 by 18 wk sono. That would put her at 42w0d today. To be thorough we will draw labs 2. Poor historian: The patient is considered an inaccurate historian. She states she was seeing Dr. Valdivia for this for care but it turns out that she was not. She also told me back in March that she was seeing a sand mill grinder for this but it turned out that she had not been seeing a sand mill grinder either. PDMP PDMP Reviewed: Not Reviewed Attestations Medical Necessity Statement*: care after delivery outside the hospital Coding Level of Care Code Acute Code for Chg Fwd Diagnoses Vaginal delivery following previous section, delivered O34.219 Poor historian Z78.9
--- NOTE | 2025-10-03 14:49 | PC.NURSE ---
Baby Boy Code Blue; 1325 CPR initiated in OB 1327 Pulse Check/CPR resumed 1329 Intubated 1330 ET Epi dose 1333 ER Epi dose 1336 IO/FLUSH 1337 IO Epi (0.6mL) 1340 IO Epi 1341 OG Placed 1342 Pulse Check 1344 Pulse Check (HR 90) 1344 IO Epi 1346 Warmer off (HR 89) 1347 30mL NS bolus initiated 1349 30mL NS bolus completed (HR 102, BP 83/45) 1351 CPR Resumed 1352 IO Epi 1353 Pulse Check/CPR resumed 1355 IO Epi 1356 Pulse Check/CPR Resumed (HR 40) 1358 IO Epi 1403 BG 144 1403 HR 40 1405 CPR stopped. TOD called @1405
--- NOTE | 2025-10-03 15:00 | PC.NURSE ---
Field Sales Manager in to assess bleeding at this time. Patient reports it is a lot . Field Sales Manager notes IV pump is off. Patient reports she turned it off because she felt like it was done. Approx 300ml of pitocin remaining in bag and restarted at this time at 60mls/hr. Pad changed and patient educated about bleeding and IV medications. Patient verbalized understanding.
--- NOTE | 2025-10-03 15:10 | PC.NURSE ---
At approx 1324 com writer in triage hallway and ER nurses entered main door with patient in wheelchair holding an . Directed to OB 2. Baby noted to be blue, no tone, no respiratory effort, no HR. Mom reports delivery 5-10 prior to arrival and is actively doing chest compressions on . Cord was clamped and cut and infant taken to warmer where resuscitation efforts started-see Leslie Mosher note.
[2025-10-03] MEDS: lidocaine 2% viscous 15 ML, aluminum-mag hydrox-simethicon 30 ML, sucralfate oral liq 1 GM PO (15:46)
[2025-10-03 15:58] LABS: PCP Screen Urine Negative (Negative)
[2025-10-03 16:53] LABS: Hepatitis B Surface Antigen Non-Reactive (Nonreactive)
[2025-10-03 17:12] LABS: HIV 1 & 2 Antigen Non-Reactive (Non-Reactiv)
[2025-10-03 17:18] LABS: Neisseria Gonorrhea NOT DETECTED (Negative)
[2025-10-03 18:26] LABS: High Risk PP Hemorrhage BBK Notified
[2025-10-03 21:40] LABS: Rapid Plasma Reagin Syphilis Nonreactive (Nonreactive)
== END 2025-10-03 23:58 | disposition home or self-care (01) | DRG 769 ==
PROVIDERS: Admitting Provider Family Medicine; Visit Provider Family Medicine
DX: O73.0 Retained placenta without hemorrhage (principal); Z39.0 Encounter for care and examination of mother immediately after delivery
CPT/HCPCS: 36415; 59409; 80306; 86592; 86762; 86850; 86900; 87070; 87075; 87077; 87176; 87186; 87205; 87340; 87491; 87591; 87806; 88307; J2590; J7120; J9999